=== PATIENT | male | born 1950 | race Caucasian/White ===

== ENCOUNTER 2017-03-16 14:14 | Inpatient (IN) | payer MEDICARE, BC ==
--- NOTE | 2017-03-16 15:40 | EDM.PDOC ---
ED HPI GENERAL MEDICAL PROBLEM - General Chief Complaint: General Stated Complaint: ILLNESS Time Seen by Provider: 03/16/17 15:34 Source of Information: Reports: Patient, Family History Limitations: Reports: No limitations - History of Present Illness INITIAL COMMENTS - FREE TEXT/NARRATIVE: Pt arrived with a cough and fever He has some pain when he takes a deep breath. He is coughing some yellow sputum. Onset: gradual Duration: Day(s):, Other (pt has been coughing for 1 week. ) Location: Reports: chest Associated Symptoms: Reports: cough, diaphoresis, fever/chills, loss of appetite , malaise, shortness of breath esophageal Pain Score (Numeric/FACES): 3 - Related Data Allergies Allergy/AdvReac Type Severity Reaction Status Date / Time No Known Allergies Allergy Verified 03/16/17 14:30 Home Meds: Home Meds Aspirin [Low Dose Aspirin EC] 81 mg PO DAILY 07/20/14 [History] Omeprazole Magnesium [Prilosec Otc] 40 mg PO DAILY PRN 03/14/16 [History] Past Medical History HEENT History: Reports: Cataract, Impaired vision Cardiovascular History: Reports: High cholesterol, Hypertension, Other (see below) Other Cardiovascular History: "[facility]" Gastrointestinal History: Reports: Diverticulosis, GERD Musculoskeletal History: Reports: Other (see below) Other Musculoskeletal History: chronic right shoulder pain from playing softball when younger - Infectious Disease History Infectious Disease History: Reports: Chicken pox - Past Surgical History HEENT Surgical History: Reports: Cataract surgery, Oral surgery, Other (see below) Other HEENT Surgeries/Procedures: both eyes. Some [facility] problems [facility] [place] on [facility]/2017 GI Surgical History: Reports: Cholecystectomy Musculoskeletal Surgical History: Reports: Other (see below) Other Musculoskeletal Surgeries/Procedures:: r ankle and knee surgery Social & Family History - Tobacco Use Smoking Status *Q: Never Smoker Years of Tobacco use: 3 Second Hand Smoke Exposure: No - Caffeine Use Caffeine Use: Reports: None - Alcohol Use Days Per Week of Alcohol Use: 0 - Recreational Drug Use Recreational Drug Use: No ED ROS GENERAL - Review of Systems Review Of Systems: See Below Constitutional: Reports: fever, chills, malaise, diaphoresis HEENT: Reports: No symptoms Respiratory: Reports: Shortness of Breath, Cough, Sputum Cardiovascular: Reports: No symptoms Endocrine: Reports: no symptoms GI/Abdominal: Reports: No symptoms : Reports: no symptoms Musculoskeletal: Reports: no symptoms ED EXAM, GENERAL - Physical Exam Exam: See Below Free Text/Narrative:: Pt arrived with a continuous coughing and raising yellow sputum. He is diaphoretic. He is having alot of acid reflux. Exam Limited By: No limitations General Appearance: alert, moderate distress Ears: normal TMs Nose: normal inspection Throat/Mouth: Normal inspection Head: atraumatic Neck: normal inspection Respiratory/Chest: decreased breath sounds, wheezing Cardiovascular: regular rate, rhythm GI/Abdominal: soft, non tender (Male) Exam: Deferred Rectal (Males) Exam: Deferred Back Exam: normal inspection Extremities: normal inspection Neurological: alert, oriented, normal cognition Psychiatric: normal affect Course - Vital Signs Last Recorded V/S: Last Vital Signs Temp 37.9 C 03/16/17 14:35 Pulse 57 L 03/16/17 14:35 Resp 14 03/16/17 14:35 BP 136/73 03/16/17 14:35 Pulse Ox 95 03/16/17 14:35 - Orders/Labs/Meds Orders: Active Orders 24 hr Category Date Time Status RT Aerosol Therapy [RC] ASDIRECTED Care 03/16/17 15:41 Active Chest 2V [CR] Stat Exams 03/16/17 15:32 Taken COMPREHENSIVE METABOLIC PN,CMP [CHEM] Urgent Lab 03/16/17 15:13 Received PRO B-TYPE NATRIUR PEPT,BNPPRO [CHEM] Urgent Lab 03/16/17 15:13 Received URIC ACID [CHEM] Stat Lab 03/16/17 15:13 Received Sodium Chloride 0.9% [Normal Saline] 1,000 ml Med 03/16/17 15:45 Active IV ASDIRECTED Medication Orders Sodium Chloride (Normal Saline) 1,000 mls @ 999 mls/hr IV ASDIRECTED BJ Last Admin: 03/16/17 15:58 Dose: 999 mls/hr Labs: Laboratory Tests 03/16/17 03/16/17 03/16/17 Range/Units 14:59 15:13 15:46 WBC 19.4 H (4.5-11.0) K/uL RBC 4.25 L (4.30-5.90) M/uL Hgb 14.1 D (12.0-15.0) g/dL Hct 39.9 L (40.0-54.0) % MCV 94 (80-98) fL MCH 33 H (27-31) pg MCHC 35 (32-36) % Plt Count 233 (150-400) K/uL Neut % (Auto) 79 H (36-66) % Lymph % (Auto) 12 L (24-44) % [place] % (Auto) 8 H (2-6) % Eos % (Auto) 1 L (2-4) % Baso % (Auto) 1 (0-1) % C-Reactive Protein 9.10 H (0.0-0.3) mg/dL Urine Color Yellow Urine Appearance Clear Urine pH 7.0 (4.5-8.0) Ur Specific [place] 1.010 (1.008-1.030) Urine Protein Negative (NEGATIVE) mg/dL Urine Glucose (UA) Normal (NEGATIVE) mg/dL Urine Ketones Negative (NEGATIVE) mg/dL Urine Occult Blood Negative (NEGATIVE) Urine Nitrite Negative (NEGAITVE) Urine Bilirubin Negative (NEGATIVE) Urine Urobilinogen 1 (NORMAL) mg/dL Ur Leukocyte Esterase Negative (NEGATIVE) Urine RBC 0-5 (0-5) Urine WBC 0-5 (0-5) Ur Epithelial Cells Rare Amorphous Sediment Not seen Urine Bacteria Rare Urine Mucus Not seen Meds: Medications Generic Name Dose Route Start Last Admin Trade Name Freq PRN Reason Stop Dose Admin Sodium Chloride 1,000 mls @ 999 mls/hr 03/16/17 15:45 03/16/17 15:58 Normal Saline IV 999 mls/hr ASDIRECTED BJ Administration Discontinued Medications Generic Name Dose Route Start Last Admin Trade Name Freq PRN Reason Stop Dose Admin Albuterol 2.5 mg 03/16/17 15:41 03/16/17 15:59 Proventil Neb Soln NEB 03/16/17 15:42 2.5 mg ONETIME ONE Administration - Re-Assessments/Exams Free Text/Narrative Re-Assessment/Exam: 03/16/17 16:26 wbc is markedly elevated crp was greater than 9. His chest xray does not show a clear heart border. Departure - Departure Time of Disposition: 16:28 Disposition: Admitted As Inpatient 65 Condition: fair Clinical Impression: Pneumonia, Dehydration, GERD (gastroesophageal reflux disease) Forms: ED Department Discharge Care Plan Goals: admit to Dr webb. - My Orders Last 24 Hours: My Active Orders 03/16/17 15:13 COMPREHENSIVE METABOLIC PN,CMP [CHEM] Urgent PRO B-TYPE NATRIUR PEPT,BNPPRO [CHEM] Urgent URIC ACID [CHEM] Stat 03/16/17 15:32 Chest 2V [CR] Stat 03/16/17 15:41 RT Aerosol Therapy [RC] ASDIRECTED 03/16/17 15:45 Sodium Chloride 0.9% [Normal Saline] 1,000 ml IV ASDIRECTED - Assessment/Plan Last 24 Hours: My Active Orders 03/16/17 15:13 COMPREHENSIVE METABOLIC PN,CMP [CHEM] Urgent PRO B-TYPE NATRIUR PEPT,BNPPRO [CHEM] Urgent URIC ACID [CHEM] Stat 03/16/17 15:32 Chest 2V [CR] Stat 03/16/17 15:41 RT Aerosol Therapy [RC] ASDIRECTED 03/16/17 15:45 Sodium Chloride 0.9% [Normal Saline] 1,000 ml IV ASDIRECTED
[2017-03-16] MEDS ORDERED: Albuterol 0.083% 2.5 MG/3 ML Neb Soln NEB ONE (15:41)
[2017-03-16] MEDS ORDERED: Sodium Chloride 0.9% 1,000 ML IV SCH (15:45)
--- NOTE | 2017-03-16 17:34 | PCM.HP ---
H&P History of Present Illness - General Date of Service: 03/16/17 Admit Problem/Dx: Admission Diagnosis/Problem Admission Diagnosis/Problem Pneumonia Source of Information: Patient, Family, Provider History Limitations: Reports: No limitations - History of Present Illness Initial Comments - Free Text/Narative: CC: I can't stop coughing HPI: Nikos presents to the emergency room today with nearly 3 weeks of progressive cough with increasing sputum production and severe heartburn. He developed both a significant increase in his heartburn symptoms and a cough at about the same time. His cough has become more frequent to the point that he is coughing fairly steadily over the past 24 hours. He has been unable to sleep because she's coughing so much. Cough is productive for yellow sputum on a semi-regular basis. He has some pleuritic pain on the left side of his chest. He has had subjective fevers and chills for more than a week and last night had an episode of significant diaphoresis while he was sleeping. He has not measured any temperatures at home. He also reports severe esophageal reflux symptoms with mild to moderate achy pain in his throat. Pain radiates throughout most of his neck. When his heartburn symptoms flareup that makes the pain worse. Not eating seems to help the pain lessened and baking soda and water mixed help the pain some. He has had similar discomfort but never this severe. He has not had any trouble with vomiting but has not had an appetite for the past 2 weeks. He's had very little to eat or drink other than a she reports some very mild periumbilical abdominal pain. He has had looser stools than usual. No change in bladder habits. His energy is significantly decreased in his been sleeping more than usual. Workup in the emergency room revealed significant leukocytosis, very elevated C- reactive protein and probable left lower lobe pneumonia. Given his significant coughing, pneumonia and severe reflux symptoms he will be admitted to the hospital for further management. esophageal Pain Score (Numeric/FACES): 3 - Related Data Allergies/Adverse Reactions: Allergies Allergy/AdvReac Type Severity Reaction Status Date / Time No Known Allergies Allergy Verified 03/16/17 14:30 Home Medications: Home Meds Aspirin [Low Dose Aspirin EC] 81 mg PO DAILY 07/20/14 [History] Omeprazole Magnesium [Prilosec Otc] 40 mg PO DAILY 03/14/16 [History] Past Medical History HEENT History: Reports: Cataract, Impaired vision Cardiovascular History: Reports: High cholesterol, Hypertension, Other (see below) Other Cardiovascular History: "[facility]" Gastrointestinal History: Reports: Diverticulosis, GERD Musculoskeletal History: Reports: Other (see below) Other Musculoskeletal History: chronic right shoulder pain from playing softball when younger - Infectious Disease History Infectious Disease History: Reports: Chicken pox - Past Surgical History HEENT Surgical History: Reports: Cataract surgery, Oral surgery, Other (see below) Other HEENT Surgeries/Procedures: both eyes. Some ear problems - [facility], has [facility] app[facility] in [place] on 10/23/2017 GI Surgical History: Reports: Cholecystectomy Musculoskeletal Surgical History: Reports: Other (see below) Other Musculoskeletal Surgeries/Procedures:: r ankle and knee surgery Social & Family History - Family History GI: Reports: Cirrhosis (4 brothers), GERD (mother) - Tobacco Use Smoking Status *Q: Never Smoker Years of Tobacco use: 3 Second Hand Smoke Exposure: No - Caffeine Use Caffeine Use: Reports: None - Alcohol Use Days Per Week of Alcohol Use: 0 - Recreational Drug Use Recreational Drug Use: No H&P Review of Systems - Review of Systems: Review Of Systems: See Below Free Text/Narrative: A complete 12 point review of systems was obtained. Pertinent positives and negatives are noted in the history of present illness. All other systems were reviewed and were negative except as noted. Exam - Exam Exam: See Below - Vital Signs Vital Signs: Last Vital Signs Temp 37.9 C 03/16/17 14:35 Pulse 69 03/16/17 16:20 Resp 18 03/16/17 16:20 BP 137/62 03/16/17 16:20 Pulse Ox 92 L 03/16/17 16:20 Weight: 87.5 kg - Exam Quality Assessment: No: supplemental oxygen, urinary catheter General: alert, oriented, cooperative. No: mild distress HEENT: Conjunctiva clear, Mucosa moist & pink. No: Scleral icterus Neck: supple, trachea midline. No: lymphadenopathy, thyromegaly Lungs: Normal respiratory effort, Rales (left lung base). No: Wheezing Cardiovascular: regular rate, regular rhythm. No: systolic murmur Abdomen: normal bowel sounds, soft, tenderness (mild periumbilical and epigastric ). No: distention, mass Back Exam: normal inspection, full range of motion Extremities: normal inspection, normal pulses. No: cyanosis, edema Peripheral Pulses: 1+: dorsalis pedis (L), dorsalis pedis (R) Skin: warm, dry, intact. No: rash Neuro Extensive - Mental Status: alert, oriented x3, nl response to commands Neuro Extensive - Motor, Sensory, Reflexes: CN II-XII intact. No: dysarthria, abnormal motor, tremor Psychiatric: alert, normal affect - Patient Data Lab Results last 24 hrs: Laboratory Results - last 24 hr 03/16/17 03/16/17 03/16/17 Range/Units 14:59 15:13 15:13 WBC 19.4 H (4.5-11.0) K/uL RBC 4.25 L (4.30-5.90) M/uL Hgb 14.1 D (12.0-15.0) g/dL Hct 39.9 L (40.0-54.0) % MCV 94 (80-98) fL MCH 33 H (27-31) pg MCHC 35 (32-36) % Plt Count 233 (150-400) K/uL Neut % (Auto) 79 H (36-66) % Lymph % (Auto) 12 L (24-44) % [place] % (Auto) 8 H (2-6) % Eos % (Auto) 1 L (2-4) % Baso % (Auto) 1 (0-1) % Sodium 137 L (140-148) mmol/L Potassium 3.6 (3.6-5.2) mmol/L Chloride 103 (100-108) mmol/L Carbon Dioxide 27 (21-32) mmol/L Anion Gap 10.6 (5.0-14.0) mmol/L BUN 12 (7-18) mg/dL Creatinine 1.4 H (0.8-1.3) mg/dL Est Cr Clr Drug Dosing 52.14 mL/min Estimated GFR (MDRD) 50 L (>60) Glucose 99 (74-106) mg/dL Uric Acid 6.3 (3.5-7.2) mg/dL Calcium 7.8 L (8.5-10.1) mg/dL Total Bilirubin 1.0 (0.2-1.0) mg/dL AST 36 (15-37) U/L ALT 63 (12-78) U/L Alkaline Phosphatase 101 (46-116) U/L C-Reactive Protein 9.10 H (0.0-0.3) mg/dL Imc-B-Wafqhslwchl Pept 1056 H (5-125) pg/mL Total Protein 6.2 L (6.4-8.2) g/dL Albumin 2.6 L (3.4-5.0) g/dL Globulin 3.6 H (2.3-3.5) g/dL Albumin/Globulin Ratio 0.7 L (1.2-2.2) Urine Color Urine Appearance Urine pH (4.5-8.0) Ur Specific [place] (1.008-1.030) Urine Protein (NEGATIVE) mg/dL Urine Glucose (UA) (NEGATIVE) mg/dL Urine Ketones (NEGATIVE) mg/dL Urine Occult Blood (NEGATIVE) Urine Nitrite (NEGAITVE) Urine Bilirubin (NEGATIVE) Urine Urobilinogen (NORMAL) mg/dL Ur Leukocyte Esterase (NEGATIVE) Urine RBC (0-5) Urine WBC (0-5) Ur Epithelial Cells Amorphous Sediment Urine Bacteria Urine Mucus 03/16/17 Range/Units 15:46 WBC (4.5-11.0) K/uL RBC (4.30-5.90) M/uL Hgb (12.0-15.0) g/dL Hct (40.0-54.0) % MCV (80-98) fL MCH (27-31) pg MCHC (32-36) % Plt Count (150-400) K/uL Neut % (Auto) (36-66) % Lymph % (Auto) (24-44) % [place] % (Auto) (2-6) % Eos % (Auto) (2-4) % Baso % (Auto) (0-1) % Sodium (140-148) mmol/L Potassium (3.6-5.2) mmol/L Chloride (100-108) mmol/L Carbon Dioxide (21-32) mmol/L Anion Gap (5.0-14.0) mmol/L BUN (7-18) mg/dL Creatinine (0.8-1.3) mg/dL Est Cr Clr Drug Dosing mL/min Estimated GFR (MDRD) (>60) Glucose (74-106) mg/dL Uric Acid (3.5-7.2) mg/dL Calcium (8.5-10.1) mg/dL Total Bilirubin (0.2-1.0) mg/dL AST (15-37) U/L ALT (12-78) U/L Alkaline Phosphatase (46-116) U/L C-Reactive Protein (0.0-0.3) mg/dL Red-Y-Ijcfmjjjaez Pept (5-125) pg/mL Total Protein (6.4-8.2) g/dL Albumin (3.4-5.0) g/dL Globulin (2.3-3.5) g/dL Albumin/Globulin Ratio (1.2-2.2) Urine Color Yellow Urine Appearance Clear Urine pH 7.0 (4.5-8.0) Ur Specific [place] 1.010 (1.008-1.030) Urine Protein Negative (NEGATIVE) mg/dL Urine Glucose (UA) Normal (NEGATIVE) mg/dL Urine Ketones Negative (NEGATIVE) mg/dL Urine Occult Blood Negative (NEGATIVE) Urine Nitrite Negative (NEGAITVE) Urine Bilirubin Negative (NEGATIVE) Urine Urobilinogen 1 (NORMAL) mg/dL Ur Leukocyte Esterase Negative (NEGATIVE) Urine RBC 0-5 (0-5) Urine WBC 0-5 (0-5) Ur Epithelial Cells Rare Amorphous Sediment Not seen Urine Bacteria Rare Urine Mucus Not seen Result Diagrams: 03/16/17 14:59 03/16/17 15:13 Imaging Impressions last 24 hrs: CXR - images personally reviewed and compared to previous CXR's - there is a possible subtle left lung infiltrate near the left heart border. No mass or chf. no bony abnormalities. EKG INTERPRETATION EKG Date: 03/16/17 Rhythm: NSR Rate (beats/min): 68 [place]: LAD-left axis deviation (LAFB) P-wave: present QRS: normal ST-T: normal QT: normal EKG Interpretation Comments: Poor R wave progression *Q Meaningful Use (ADM) - VTE *Q VTE Criteria *Q: - VTE Risk Assess *Q Each Risk Factor Represents 1 Point: Minor Surgery Planned Total Score 1 Point Risk Factors: 1 Each Risk Factor Represents 2 Points: Age 60 - 74 Years Total Score 2 Point Risk Factors: 2 - Stroke *Q Stroke Criteria *Q: - AMI *Q AMI Criteria *Q: - Problem List (1) Pneumonia SNOMED Code(s): 257936344 ICD Code: J18.9 - PNEUMONIA, UNSPECIFIED ORGANISM Status: Acute Current Visit: Yes Qualifiers: Pneumonia type: due to unspecified organism Laterality: left Lung location: lower lobe of lung Qualified Code(s): J18.1 - Lobar pneumonia, unspecified organism (2) GERD (gastroesophageal reflux disease) SNOMED Code(s): 529186833 ICD Code: K21.9 - GASTRO-ESOPHAGEAL REFLUX DISEASE WITHOUT ESOPHAGITIS Status: Acute Current Visit: Yes Qualifiers: Esophagitis presence: esophagitis presence not specified Qualified Code(s) : K21.9 - Gastro-esophageal reflux disease without esophagitis Problem List Initiated/Reviewed/Updated: Yes Orders Last 24hrs: Active Orders 24 hr Category Date Time Status Patient Status Manage Transfer [TRANSFER] Routine ADT 03/16/17 17:23 Ordered EKG Documentation Completion [RC] ASDIRECTED Care 03/16/17 16:29 Active RT Aerosol Therapy [RC] ASDIRECTED Care 03/16/17 15:41 Active Chest 2V [CR] Stat Exams 03/16/17 15:32 Taken CULTURE RESPIRATORY + SMEAR [RM] Routine Lab 03/16/17 17:23 Uncollected Benzonatate [Tessalon Perles] Med 03/16/17 17:22 Active 100 mg PO TID PRN Levofloxacin/Dextrose 5%-Water [Levaquin in D5W 750 MG/ Med 03/16/17 17:30 Active 150 ML] 750 mg Premix Bag 1 bag IV Q24H Sodium Chloride 0.9% [Normal Saline] 1,000 ml Med 03/16/17 15:45 Active IV ASDIRECTED Sodium Chloride 0.9% [Normal Saline] 1,000 ml Med 03/16/17 17:30 Active IV ASDIRECTED Resuscitation Status Routine Resus Stat 03/16/17 17:24 Ordered EKG 12 Lead [EK] Routine Ther 03/16/17 16:29 Ordered Medication Orders Benzonatate (Tessalon Perles) 100 mg PO TID PRN PRN Reason: Cough Sodium Chloride (Normal Saline) 1,000 mls @ 999 mls/hr IV ASDIRECTED BJ Last Admin: 03/16/17 15:58 Dose: 999 mls/hr Levofloxacin/Dextrose 750 mg/ (Premix) 150 mls @ 100 mls/hr IV Q24H BJ Sodium Chloride (Normal Saline) 1,000 mls @ 125 mls/hr IV ASDIRECTED BJ Assessment/Plan Comment:: Assessment and plan - Left lower lobe pneumonia - chest x-ray did not all that impressive but significant crackles on the side with examination and significant cough as well. He has an elevated white count and C-reactive protein. No significant smoking history. He is not currently hypoxic but has very impressive coughing symptoms. No evidence for sepsis. -Levofloxacin -Sputum culture -Oxygen if needed -Nebulizers as needed -Cough suppressant -Blood cultures if he spikes a fever Severe GERD - history of reflux but symptoms are usually able to be controlled with omeprazole. Severe symptoms for the past 2-3 weeks. Unable to keep much of anything because of his symptoms. Unclear if the pneumonia is worsening his baseline symptoms or if the GERD led to aspiration. -Proton pump inhibitor -Sucralfate -Maalox as needed -EGD in the morning with Dr. Aragon Maintenance issues - - DVT prophylaxis - SCDs and ambulation - GI prophylaxis - PPI - Nutrition - regular diet today, n.p.o. after midnight - Martinez catheter - not indicated CODE STATUS - full code Admission justification - This patient will be admitted for inpatient services and is medically appropriate meeting medical necessity for inpatient admission as outlined in my documentation. I reasonably expect the patient will require inpatient services that span a period time of 2 midnights or more. I reasonably expect this patient to be discharged or transferred within 96 hours [facility]. Disposition - anticipate discharge home after the hospital stay Primary care physician - Dr. Dre Ybarra M.D.
[2017-03-16] MEDS: Sodium Chloride 0.9% 1,000 ML IV SCH (17:40)
[2017-03-16] MEDS: Levofloxacin/Dextrose 5%-Water 750 MG in Premix Bag 1 BAG IV SCH (17:41)
[2017-03-16] MEDS: Benzonatate 100 MG Cap PO PRN ×2 (17:47→23:54)
[2017-03-16] MEDS ORDERED: Ondansetron 4 MG Tab.DIS PO PRN (18:39)
[2017-03-16] MEDS ORDERED: Ondansetron 4 MG/2 ML SDV IV PRN (18:39)
[2017-03-16] MEDS ORDERED: Pantoprazole 40 MG Vial IV ONE (18:39)
[2017-03-16] MEDS ORDERED: Aluminum Hydroxide/Magnesium Hydroxide/Simethicone Susp 30 ML Cup PO PRN (18:39)
[2017-03-16] MEDS: Acetaminophen 325 MG Tab PO PRN (19:45)
[2017-03-16] MEDS: Sucralfate Suspension 1 GM/10 ML Cup PO SCH (19:45)
[2017-03-16] MEDS: Codeine/guaiFENesin 100mg-10 MG/5 ML Syrup 10 ML Cup PO PRN ×2 (19:45→23:55)
[2017-03-17] MEDS: Sodium Chloride 0.9% 1,000 ML IV SCH ×3 (02:48→15:29)
[2017-03-17] MEDS: Codeine/guaiFENesin 100mg-10 MG/5 ML Syrup 10 ML Cup PO PRN ×3 (04:06→19:29)
[2017-03-17] MEDS ORDERED: Propofol 200 MG/20 ML SDV ONE (08:14)
[2017-03-17] MEDS ORDERED: fentaNYL 100 MCG/2 ML SDV ONE (08:14)
[2017-03-17] MEDS ORDERED: Midazolam 1 MG/ML 2 ML SDV ONE (08:14)
[2017-03-17] MEDS ORDERED: Acetaminophen 650 MG Supp RECTAL ONE (09:24)
--- NOTE | 2017-03-17 10:24 | PCM.PN ---
- General Info Date of Service: 03/17/17 Functional Status: Reports: pain controlled, tolerating diet, ambulating - Review of Systems General: Reports: Fever Pulmonary: Reports: shortness of breath, cough Gastrointestinal: Reports: Other (reflux) Systems Review Comment:: some difficulty with cough overnight that interfered with his sleep but otherwise no acute events. Still having moderate reflux symptoms this morning. He also had a fever this morning but no associated symptoms. Blood pressures and heart rate have been stable. He has not been hypoxic. Tolerating antibiotics well. No complaints of abdominal pain. - Patient Data Vitals - most recent: Last Vital Signs Temp 38.6 C H 03/17/17 09:30 Pulse 67 03/17/17 07:00 Resp 18 03/17/17 07:00 BP 151/75 H 03/17/17 07:00 Pulse Ox 95 03/17/17 07:00 Weight - most recent: 87.5 kg I&O - last 24 hours: Intake & Output 03/16/17 03/17/17 03/17/17 22:59 06:59 14:59 Intake Total 120 2332 Output Total 1300 800 Balance 120 1032 -800 Lab Results last 24 hrs: Laboratory Results - last 24 hr 03/17/17 03/17/17 Range/Units 05:55 05:55 WBC 14.6 H (4.5-11.0) K/uL RBC 4.37 (4.30-5.90) M/uL Hgb 14.4 (12.0-15.0) g/dL Hct 41.5 (40.0-54.0) % MCV 95 (80-98) fL MCH 33 H (27-31) pg MCHC 35 (32-36) % Plt Count 235 (150-400) K/uL Sodium 141 (140-148) mmol/L Potassium 4.8 (3.6-5.2) mmol/L Chloride 107 (100-108) mmol/L Carbon Dioxide 29 (21-32) mmol/L Anion Gap 4.7 L (5.0-14.0) mmol/L BUN 10 (7-18) mg/dL Creatinine 1.3 (0.8-1.3) mg/dL Est Cr Clr Drug Dosing 56.15 mL/min Estimated GFR (MDRD) 55 L (>60) Glucose 101 (74-106) mg/dL Calcium 8.0 L (8.5-10.1) mg/dL Med Orders - Current: Current Medications Acetaminophen (Tylenol) 650 mg PO Q4H PRN PRN Reason: Pain (Mild 1-3)/fever Last Admin: 03/16/17 19:45 Dose: 650 mg Al Hydroxide/Mg Hydroxide (Mag-Al Plus) 30 ml PO Q4H PRN PRN Reason: Heartburn Albuterol (Proventil Neb Soln) 2.5 mg NEB Q4H PRN PRN Reason: Shortness Of Breath/wheezing Benzonatate (Tessalon Perles) 100 mg PO TID PRN PRN Reason: Cough Last Admin: 03/16/17 23:54 Dose: 100 mg Guaifenesin/Codeine Phosphate (Robitussin Ac) 10 ml PO Q4H PRN PRN Reason: Cough Last Admin: 03/17/17 08:04 Dose: 10 ml Levofloxacin/Dextrose 750 mg/ (Premix) 150 mls @ 100 mls/hr IV Q24H [facility] Last Admin: 03/16/17 17:41 Dose: 100 mls/hr Sodium Chloride (Normal Saline) 1,000 mls @ 125 mls/hr IV ASDIRECTED [facility] Last Admin: 03/17/17 02:48 Dose: 125 mls/hr Ondansetron HCl (Zofran Odt) 4 mg PO Q6H PRN PRN Reason: Nausea able to take PO Ondansetron HCl (Zofran) 4 mg IV Q6H PRN PRN Reason: Nausea/Vomiting Pantoprazole Sodium (Protonix) 40 mg PO BIDAC [facility] Sucralfate (Carafate) 1 gm PO QIDACANDBED [facility] Last Admin: 03/16/17 19:45 Dose: 1 gm Discontinued Medications Acetaminophen (Tylenol) 650 mg RECTAL NOW ONE Stop: 03/17/17 09:25 Last Admin: 03/17/17 09:36 Dose: 650 mg Albuterol (Proventil Neb Soln) 2.5 mg NEB ONETIME ONE Stop: 03/16/17 15:42 Last Admin: 03/16/17 15:59 Dose: 2.5 mg Fentanyl (Sublimaze) Confirm Administered Dose 100 mcg .ROUTE .STK-MED ONE Stop: 03/17/17 08:15 Sodium Chloride (Normal Saline) 1,000 mls @ 999 mls/hr IV ASDIRECTED [facility] Last Admin: 03/16/17 15:58 Dose: 999 mls/hr Midazolam HCl (Versed 1 Mg/Ml) Confirm Administered Dose 2 mg .ROUTE .STK-MED ONE Stop: 03/17/17 08:15 Pantoprazole Sodium (Protonix Iv) 40 mg IV ONETIME ONE Stop: 03/16/17 18:40 Last Admin: 03/16/17 19:45 Dose: 40 mg Propofol (Diprivan 20 Ml) Confirm Administered Dose 200 mg .ROUTE .STK-MED ONE Stop: 03/17/17 08:15 - Exam Quality Assessment: No: supplemental oxygen General: alert, oriented, cooperative, no acute distress Neck: supple Lungs: Clear to auscultation, Normal respiratory effort, Decreased breath sounds (mild left lung base). No: Wheezing Cardiovascular: Regular Rate, Regular Rhythm, No Murmurs Abdomen: soft, no distension Extremities: no edema, no cyanosis Skin: warm, dry Psy/Mental Status: alert, normal affect - Problem List & Annotations (1) Pneumonia SNOMED Code(s): 591249431 Code(s): J18.9 - PNEUMONIA, UNSPECIFIED ORGANISM Status: Acute Current Visit: Yes Qualifiers: Pneumonia type: due to unspecified organism Laterality: left Lung location: lower lobe of lung Qualified Code(s): J18.1 - Lobar pneumonia, unspecified organism (2) GERD (gastroesophageal reflux disease) SNOMED Code(s): 267016554 Code(s): K21.9 - GASTRO-ESOPHAGEAL REFLUX DISEASE WITHOUT ESOPHAGITIS Status: Acute Current Visit: Yes Qualifiers: Esophagitis presence: esophagitis presence not specified Qualified Code(s) : K21.9 - Gastro-esophageal reflux disease without esophagitis - Problem List Review Problem List Initiated/Reviewed/Updated: Yes - My Orders Last 24 Hours: My Active Orders 03/16/17 17:24 Resuscitation Status Routine 03/16/17 18:39 Patient Status [ADT] Routine Intake and Output [RC] QSHIFT Notify Provider Consults [RC] ASDIRECTED Notify Provider Vital Signs [RC] ASDIRECTED Oxygen Therapy [RC] PRN RT Aerosol Therapy [RC] ASDIRECTED Up ad Mackenzie [RC] ASDIRECTED Vital Signs [RC] Q4H Consult to Physician [CONS] Routine Acetaminophen [Tylenol] 650 mg PO Q4H PRN Albuterol [Proventil Neb Soln] 2.5 mg NEB Q4H PRN Alum Hydrox/Mag Hydrox/Simeth [Mag-Al Plus] 30 ml PO Q4H PRN Codeine/guaiFENesin [Robitussin AC] 10 ml PO Q4H PRN Ondansetron [Zofran ODT] 4 mg PO Q6H PRN Ondansetron [Zofran] 4 mg IV Q6H PRN Sequential Compression Device [OM.PC] Per Unit Routine 03/16/17 20:00 Sucralfate [Carafate] 1 gm PO QIDACANDBED 03/16/17 Dinner Regular Diet [DIET] 03/17/17 07:30 Pantoprazole [ProTONIX] 40 mg PO BIDAC 03/17/17 09:25 Blood Culture x2 Reflex Set [OM.PC] Urgent 03/17/17 09:30 CULTURE BLOOD [BC] Urgent 03/17/17 09:40 CULTURE BLOOD [BC] Urgent 03/18/17 05:00 BASIC METABOLIC PANEL,BMP [CHEM] Timed CBC W/O DIFF,HEMOGRAM [HEME] Timed (1) - Plan Plan:: Assessment and plan - Left lower lobe pneumonia - chest x-ray did not all that impressive but significant crackles on the side with examination and significant cough as well. fever this morning but no hypoxia. Tolerating antibiotics. Exam seems to be improving. -Levofloxacin -Sputum culture -Oxygen if needed -Nebulizers as needed -Cough suppressant -Blood cultures if he spikes a fever Severe GERD - history of reflux but symptoms are usually able to be controlled with omeprazole. EGD revealed large erosion. Symptoms have improved since the procedure. -twice daily Proton pump inhibitor (3 months) -Sucralfate x2-4 weeks -Maalox as needed Maintenance issues - - DVT prophylaxis - SCDs and ambulation - GI prophylaxis - PPI - Nutrition - restart diet after the EGD - Martinez catheter - not indicated Disposition - anticipate discharge home after the hospital stay, possibly tomorrow if he is afebrile and symptoms continue to improve Barrett Ybarra M.D.
[2017-03-17] MEDS: Sucralfate Suspension 1 GM/10 ML Cup PO SCH ×4 (13:36→20:26)
[2017-03-17] MEDS: Pantoprazole 40 MG Tab.CR PO SCH ×2 (13:39→17:19)
[2017-03-17] MEDS: Benzonatate 100 MG Cap PO PRN ×2 (14:11→21:47)
[2017-03-17] MEDS: Acetaminophen 325 MG Tab PO PRN ×2 (15:28→19:23)
[2017-03-17] MEDS: Levofloxacin/Dextrose 5%-Water 750 MG in Premix Bag 1 BAG IV SCH (17:19)
--- NOTE | 2017-03-17 20:40 | PCM.SN ---
- Free Text/Narrative Note: 2 [facility]; concerns of fever requests medication. patient denies any pain or shortness of breath a; pnuemonia with fever p; order Tylenol 1000mg po every 4hr prn fever or pain, Motrin 800mg po every 8 hr prn pain or fever continue present plan of care
[2017-03-17] MEDS: Ibuprofen 800 MG Tab PO PRN (21:46)
[2017-03-17] MEDS: Albuterol 0.083% 2.5 MG/3 ML Neb Soln NEB PRN (21:47)
[2017-03-18] MEDS: Sodium Chloride 0.9% 1,000 ML IV SCH ×2 (00:53→08:51)
[2017-03-18] MEDS: Sucralfate Suspension 1 GM/10 ML Cup PO SCH ×4 (07:26→19:44)
[2017-03-18] MEDS: Pantoprazole 40 MG Tab.CR PO SCH ×2 (07:46→16:33)
--- NOTE | 2017-03-18 10:07 | CR ---
Chest 2V HISTORY: Cough. COMPARISON: 03/12/2016. FINDINGS: Cardiac size and pulmonary vessels normal. Very faint density left lung base either repres enting atelectasis or faint infiltrate. No effusions. Cardiac size stable.
[2017-03-18] MEDS: Acetaminophen 500 MG Tab PO PRN (10:50)
[2017-03-18] MEDS: Ibuprofen 800 MG Tab PO PRN ×2 (11:22→22:26)
[2017-03-18] MEDS: Benzonatate 100 MG Cap PO PRN ×2 (11:27→20:18)
--- NOTE | 2017-03-18 13:35 | OR ---
DATE OF PROCEDURE: 03/17/2017 PREOPERATIVE DIAGNOSIS: Gastroesophageal reflux disease. POSTOPERATIVE DIAGNOSIS: Gastroesophageal reflux disease. PROCEDURE: Esophagogastroduodenoscopy with biopsy of gastroesophageal junction. ANESTHESIA: IV anesthesia with monitored anesthesia care. INDICATION: This 67-year-old white male has had years, he says, of reflux. He has been taking medication. The head of the bed is elevated; however, he has had very severe symptoms of reflux for the past few weeks. He was admitted to the hospital. He has what is described as a minor pneumonia. Request was made for upper endoscopy. I counseled him for upper endoscopy with possible biopsy, and he gave his informed consent to proceed. DESCRIPTION OF PROCEDURE: The patient was placed in the left lateral decubitus position. IV anesthesia was administered by the Anesthesia Service. Time-out was held. The flexible video Olympus upper endoscope was passed through his mouth, down the esophagus, and into the stomach. The scope was easily passed through the pylorus into the duodenum, reaching its third portion. The scope was then slowly withdrawn, examining the mucosa throughout. The duodenal mucosa appeared unremarkable. The scope was brought up through the pylorus. The antrum appeared unremarkable. The scope was retroflexed. The proximal stomach appeared unremarkable. The scope was straightened. We did notice some bile in the stomach. We aspirated this free. The scope was then brought up to the GE junction. This was markedly abnormal with fingers of gastric mucosa coursing proximally up into the esophagus. We obtained multiple, totalling 6 biopsies of the gastroesophageal junction. The scope was then brought proximal through the remainder of the esophagus, which otherwise appeared unremarkable, and it was removed. He tolerated the procedure well. Ramu Aragon MD /[id number]
--- NOTE | 2017-03-18 13:54 | PCM.PN ---
- General Info Date of Service: 03/18/17 Functional Status: Reports: ambulating, urinating - Review of Systems General: Reports: Fever, Weakness, Chills Pulmonary: Reports: shortness of breath, cough. Denies: pleuritic chest pain, sputum, hemoptysis, wheezing Cardiovascular: Reports: Dyspnea on Exertion. Denies: Chest Pain, Palpitations , Orthopnea, PND, Edema, Lightheadedness Gastrointestinal: Reports: No symptoms Systems Review Comment:: This patient is a 67-year-old gentleman admitted with pneumonia and severe esophageal reflux. Continues to experience temperature elevations, white blood cell count is improved. Energy level is better but he continues to have fairly poor appetite, intake of liquids has been adequate. - Patient Data Vitals - most recent: Last Vital Signs Temp 101.0 F H 03/18/17 11:23 Pulse 80 03/18/17 11:23 Resp 16 03/18/17 11:23 BP 176/84 H 03/18/17 11:23 Pulse Ox 95 03/18/17 11:23 Weight - most recent: 192 lb 14.472 oz I&O - last 24 hours: Intake & Output 03/17/17 03/18/17 03/18/17 22:59 06:59 14:59 Intake Total 1999 1835 240 Output Total 600 600 300 Balance 1400 1235 -60 Lab Results last 24 hrs: Laboratory Results - last 24 hr 03/18/17 03/18/17 Range/Units 05:51 05:51 WBC 12.8 H (4.5-11.0) K/uL RBC 4.47 (4.30-5.90) M/uL Hgb 14.7 (12.0-15.0) g/dL Hct 42.2 (40.0-54.0) % MCV 94 (80-98) fL MCH 33 H (27-31) pg MCHC 35 (32-36) % Plt Count 254 (150-400) K/uL Sodium 139 L (140-148) mmol/L Potassium 3.9 (3.6-5.2) mmol/L Chloride 105 (100-108) mmol/L Carbon Dioxide 28 (21-32) mmol/L Anion Gap 9.9 (5.0-14.0) mmol/L BUN 8 (7-18) mg/dL Creatinine 1.1 (0.8-1.3) mg/dL Est Cr Clr Drug Dosing 66.36 mL/min Estimated GFR (MDRD) > 60 (>60) Glucose 95 (74-106) mg/dL Calcium 7.9 L (8.5-10.1) mg/dL Maksim Results last 24 hrs: Microbiology 03/17/17 09:40 Aerobic Blood Culture - Preliminary Blood - Arm, Left NO GROWTH AFTER 1 DAY Anaerobic Blood Culture - Preliminary NO GROWTH AFTER 1 DAY 03/17/17 09:30 Aerobic Blood Culture - Preliminary Blood - Arm, Left NO GROWTH AFTER 1 DAY Anaerobic Blood Culture - Preliminary NO GROWTH AFTER 1 DAY Med Orders - Current: Current Medications Acetaminophen (Tylenol Extra Strength) 1,000 mg PO Q6H PRN PRN Reason: Fever Last Admin: 03/18/17 10:50 Dose: 1,000 mg Acetylcysteine (Mucomyst 20%) 200 mg NEB TIDRT [facility] Al Hydroxide/Mg Hydroxide (Mag-Al Plus) 30 ml PO Q4H PRN PRN Reason: Heartburn Albuterol (Proventil Neb Soln) 2.5 mg NEB Q4H PRN PRN Reason: Shortness Of Breath/wheezing Last Admin: 03/17/17 21:47 Dose: 2.5 mg Benzonatate (Tessalon Perles) 200 mg PO TID PRN PRN Reason: Cough Last Admin: 03/18/17 11:27 Dose: 200 mg Guaifenesin/Codeine Phosphate (Robitussin Ac) 10 ml PO Q4H PRN PRN Reason: Cough Last Admin: 03/17/17 19:29 Dose: 10 ml Levofloxacin/Dextrose 750 mg/ (Premix) 150 mls @ 100 mls/hr IV Q24H [facility] Last Admin: 03/17/17 17:19 Dose: 100 mls/hr Clindamycin Phosphate 600 mg/ (Sodium Chloride) 54 mls @ 100 mls/hr IV Q6H [facility] Ibuprofen (Motrin) 800 mg PO Q8H PRN PRN Reason: Fever Last Admin: 03/18/17 11:22 Dose: 800 mg Ondansetron HCl (Zofran Odt) 4 mg PO Q6H PRN PRN Reason: Nausea able to take PO Ondansetron HCl (Zofran) 4 mg IV Q6H PRN PRN Reason: Nausea/Vomiting Pantoprazole Sodium (Protonix) 40 mg PO BIDAC [facility] Last Admin: 03/18/17 07:46 Dose: 40 mg Sucralfate (Carafate) 1 gm PO QIDACANDBED [facility] Last Admin: 03/18/17 11:22 Dose: 1 gm Discontinued Medications Acetaminophen (Tylenol) 650 mg PO Q4H PRN PRN Reason: Pain (Mild 1-3)/fever Last Admin: 03/17/17 19:23 Dose: 650 mg Acetaminophen (Tylenol) 650 mg RECTAL NOW ONE Stop: 03/17/17 09:25 Last Admin: 03/17/17 09:36 Dose: 650 mg Albuterol (Proventil Neb Soln) 2.5 mg NEB ONETIME ONE Stop: 03/16/17 15:42 Last Admin: 03/16/17 15:59 Dose: 2.5 mg Benzonatate (Tessalon Perles) 100 mg PO TID PRN PRN Reason: Cough Last Admin: 03/16/17 23:54 Dose: 100 mg Fentanyl (Sublimaze) Confirm Administered Dose 100 mcg .ROUTE .STK-MED ONE Stop: 03/17/17 08:15 Sodium Chloride (Normal Saline) 1,000 mls @ 999 mls/hr IV ASDIRECTED [facility] Last Admin: 03/16/17 15:58 Dose: 999 mls/hr Sodium Chloride (Normal Saline) 1,000 mls @ 125 mls/hr IV ASDIRECTED [facility] Last Admin: 03/18/17 08:51 Dose: 125 mls/hr Midazolam HCl (Versed 1 Mg/Ml) Confirm Administered Dose 2 mg .ROUTE .STK-MED ONE Stop: 03/17/17 08:15 Pantoprazole Sodium (Protonix Iv) 40 mg IV ONETIME ONE Stop: 03/16/17 18:40 Last Admin: 03/16/17 19:45 Dose: 40 mg Propofol (Diprivan 20 Ml) Confirm Administered Dose 200 mg .ROUTE .STK-MED ONE Stop: 03/17/17 08:15 - Exam Quality Assessment: DVT prophylaxis General: alert, oriented, cooperative, mild distress Lungs: Clear to auscultation, Normal respiratory effort, Rales, Rhonchi Cardiovascular: Regular Rate, Regular Rhythm, No Murmurs Abdomen: bowel sounds present, soft, no tenderness, no distension Extremities: no edema Skin: warm, dry, intact - Problem List Review Problem List Initiated/Reviewed/Updated: Yes - My Orders Last 24 Hours: My Active Orders 03/18/17 13:48 Convert IV to Saline Lock [OM.PC] Routine 03/18/17 13:50 RT Aerosol Therapy [RC] ASDIRECTED RT Acapella [RESPCARE] Routine 03/18/17 14:00 Clindamycin Phosphate [Cleocin] 600 mg Sodium Chloride 0.9% [Normal Saline] 50 ml IV Q6H 03/18/17 21:00 Acetylcysteine [Mucomyst 20%] 200 mg NEB TIDRT 03/19/17 05:00 BASIC METABOLIC PANEL,BMP [CHEM] Timed CBC WITH AUTO DIFF [HEME] Timed - Plan Plan:: Assessment and plan - Left lower lobe pneumonia - seems to be slowly improving, white count is better , he has had recurrent temperature elevations. Fever curve does seem to be slowly decreasing. Question of possible aspiration given his significant reflux. -Add clindamycin to current antibiotic therapy -Levofloxacin -Sputum culture -Oxygen if needed -Nebulizers as needed -Cough suppressant -Blood cultures if he spikes a fever Severe GERD - history of reflux but symptoms are usually able to be controlled with omeprazole. EGD revealed large erosion. Symptoms have improved since the procedure. -twice daily Proton pump inhibitor (3 months) -Sucralfate x2-4 weeks -Maalox as needed Maintenance issues - - DVT prophylaxis - SCDs and ambulation - GI prophylaxis - PPI - Nutrition - restart diet after the EGD - Martinez catheter - not indicated Disposition - anticipate discharge home after the hospital stay, possibly tomorrow if he is afebrile and symptoms continue to improve
[2017-03-18] MEDS: Albuterol 0.083% 2.5 MG/3 ML Neb Soln NEB PRN (14:41)
[2017-03-18] MEDS ORDERED: Acetylcysteine 20% 200 MG/ML 4 ML Nebulizer Soln SDV NEB ONE (15:00)
[2017-03-18] MEDS: Levofloxacin/Dextrose 5%-Water 750 MG in Premix Bag 1 BAG IV SCH (17:34)
[2017-03-18] MEDS: Acetylcysteine 20% 200 MG/ML 4 ML Nebulizer Soln SDV NEB SCH (20:21)
[2017-03-19] MEDS: Pantoprazole 40 MG Tab.CR PO SCH ×2 (07:24→16:41)
[2017-03-19] MEDS: Sucralfate Suspension 1 GM/10 ML Cup PO SCH ×4 (07:24→20:12)
[2017-03-19] MEDS: Acetylcysteine 20% 200 MG/ML 4 ML Nebulizer Soln SDV NEB SCH ×3 (07:27→20:26)
[2017-03-19] MEDS: Albuterol 0.083% 2.5 MG/3 ML Neb Soln NEB PRN ×3 (07:27→20:26)
[2017-03-19] MEDS: Acetaminophen 500 MG Tab PO PRN (08:21)
[2017-03-19] MEDS ORDERED: Zolpidem 5 MG Tab PO PRN (12:01)
--- NOTE | 2017-03-19 12:08 | PCM.PN ---
- General Info Date of Service: 03/19/17 Functional Status: Reports: ambulating, urinating - Review of Systems General: Reports: Fever, Weakness, Fatigue Pulmonary: Reports: shortness of breath, cough. Denies: pleuritic chest pain, sputum, hemoptysis, wheezing Cardiovascular: Reports: Dyspnea on Exertion. Denies: Chest Pain, Palpitations , Orthopnea, PND, Edema Gastrointestinal: Reports: No symptoms Systems Review Comment:: This patient has been stable over the past 24 hours, he has had a mild recurrent temperature elevation in white blood cell count remains modestly elevated. Shortness of breath and cough seems to be improved from admission and he has been up and ambulating in the halls. He did not sleep well during the night and as a result of that feels fairly fatigued today. - Patient Data Vitals - most recent: Last Vital Signs Temp 97.5 F 03/19/17 11:09 Pulse 59 L 03/19/17 11:09 Resp 18 03/19/17 11:09 BP 138/72 03/19/17 11:09 Pulse Ox 94 L 03/19/17 11:09 Weight - most recent: 192 lb 14.472 oz I&O - last 24 hours: Intake & Output 03/18/17 03/19/17 03/19/17 22:59 06:59 14:59 Intake Total 450 450 900 Output Total 450 600 400 Balance 0 -150 500 Lab Results last 24 hrs: Laboratory Results - last 24 hr 03/19/17 03/19/17 Range/Units 04:45 04:45 WBC 13.1 H (4.5-11.0) K/uL RBC 4.33 (4.30-5.90) M/uL Hgb 14.5 (12.0-15.0) g/dL Hct 40.6 (40.0-54.0) % MCV 94 (80-98) fL MCH 34 H (27-31) pg MCHC 36 (32-36) % Plt Count 278 (150-400) K/uL Neut % (Auto) 70 H (36-66) % Lymph % (Auto) 16 L (24-44) % [place] % (Auto) 11 H (2-6) % Eos % (Auto) 2 (2-4) % Baso % (Auto) 1 (0-1) % Sodium 141 (140-148) mmol/L Potassium 3.9 (3.6-5.2) mmol/L Chloride 106 (100-108) mmol/L Carbon Dioxide 29 (21-32) mmol/L Anion Gap 6.1 (5.0-14.0) mmol/L BUN 8 (7-18) mg/dL Creatinine 1.2 (0.8-1.3) mg/dL Est Cr Clr Drug Dosing 60.98 mL/min Estimated GFR (MDRD) > 60 (>60) Glucose 100 (74-106) mg/dL Calcium 8.0 L (8.5-10.1) mg/dL Maksim Results last 24 hrs: Microbiology 03/17/17 09:40 Aerobic Blood Culture - Preliminary Blood - Arm, Left NO GROWTH AFTER 2 DAYS Anaerobic Blood Culture - Preliminary NO GROWTH AFTER 2 DAYS 03/17/17 09:30 Aerobic Blood Culture - Preliminary Blood - Arm, Left NO GROWTH AFTER 2 DAYS Anaerobic Blood Culture - Preliminary NO GROWTH AFTER 2 DAYS Med Orders - Current: Current Medications Acetaminophen (Tylenol Extra Strength) 1,000 mg PO Q6H PRN PRN Reason: Fever Last Admin: 03/19/17 08:21 Dose: 1,000 mg Acetylcysteine (Mucomyst 20%) 200 mg NEB TIDRT [facility] Last Admin: 03/19/17 07:27 Dose: 200 mg Al Hydroxide/Mg Hydroxide (Mag-Al Plus) 30 ml PO Q4H PRN PRN Reason: Heartburn Albuterol (Proventil Neb Soln) 2.5 mg NEB Q4H PRN PRN Reason: Shortness Of Breath/wheezing Last Admin: 03/19/17 07:27 Dose: 2.5 mg Benzonatate (Tessalon Perles) 200 mg PO TID PRN PRN Reason: Cough Last Admin: 03/18/17 20:18 Dose: 200 mg Guaifenesin/Codeine Phosphate (Robitussin Ac) 10 ml PO Q4H PRN PRN Reason: Cough Last Admin: 03/17/17 19:29 Dose: 10 ml Levofloxacin/Dextrose 750 mg/ (Premix) 150 mls @ 100 mls/hr IV Q24H [facility] Last Admin: 03/18/17 17:34 Dose: 100 mls/hr Clindamycin Phosphate 600 mg/ (Sodium Chloride) 54 mls @ 100 mls/hr IV Q6H [facility] Last Admin: 03/19/17 07:35 Dose: 100 mls/hr Ibuprofen (Motrin) 800 mg PO Q8H PRN PRN Reason: Fever Last Admin: 03/18/17 22:26 Dose: 800 mg Ondansetron HCl (Zofran Odt) 4 mg PO Q6H PRN PRN Reason: Nausea able to take PO Last Admin: 03/18/17 19:44 Dose: 4 mg Ondansetron HCl (Zofran) 4 mg IV Q6H PRN PRN Reason: Nausea/Vomiting Pantoprazole Sodium (Protonix) 40 mg PO BIDAC [facility] Last Admin: 03/19/17 07:24 Dose: 40 mg Sucralfate (Carafate) 1 gm PO QIDACANDBED [facility] Last Admin: 03/19/17 11:05 Dose: 1 gm Discontinued Medications Acetaminophen (Tylenol) 650 mg PO Q4H PRN PRN Reason: Pain (Mild 1-3)/fever Last Admin: 03/17/17 19:23 Dose: 650 mg Acetaminophen (Tylenol) 650 mg RECTAL NOW ONE Stop: 03/17/17 09:25 Last Admin: 03/17/17 09:36 Dose: 650 mg Acetylcysteine (Mucomyst 20%) 200 mg NEB ONETIME ONE Stop: 03/18/17 15:01 Last Admin: 03/18/17 14:41 Dose: 200 mg Albuterol (Proventil Neb Soln) 2.5 mg NEB ONETIME ONE Stop: 03/16/17 15:42 Last Admin: 03/16/17 15:59 Dose: 2.5 mg Benzonatate (Tessalon Perles) 100 mg PO TID PRN PRN Reason: Cough Last Admin: 03/16/17 23:54 Dose: 100 mg Fentanyl (Sublimaze) Confirm Administered Dose 100 mcg .ROUTE .STK-MED ONE Stop: 03/17/17 08:15 Sodium Chloride (Normal Saline) 1,000 mls @ 999 mls/hr IV ASDIRECTED [facility] Last Admin: 03/16/17 15:58 Dose: 999 mls/hr Sodium Chloride (Normal Saline) 1,000 mls @ 125 mls/hr IV ASDIRECTED [facility] Last Admin: 03/18/17 08:51 Dose: 125 mls/hr Midazolam HCl (Versed 1 Mg/Ml) Confirm Administered Dose 2 mg .ROUTE .STK-MED ONE Stop: 03/17/17 08:15 Pantoprazole Sodium (Protonix Iv) 40 mg IV ONETIME ONE Stop: 03/16/17 18:40 Last Admin: 03/16/17 19:45 Dose: 40 mg Propofol (Diprivan 20 Ml) Confirm Administered Dose 200 mg .ROUTE .STK-MED ONE Stop: 03/17/17 08:15 - Exam General: alert, oriented, cooperative, no acute distress Lungs: Normal respiratory effort, Rales, Rhonchi. No: Decreased breath sounds, Crackles, Stridor Cardiovascular: Regular Rate, Regular Rhythm, No Murmurs Abdomen: bowel sounds present, soft, no tenderness, no distension Extremities: no edema Skin: warm, dry, intact - Problem List Review Problem List Initiated/Reviewed/Updated: Yes - My Orders Last 24 Hours: My Active Orders 03/18/17 13:48 Convert IV to Saline Lock [OM.PC] Routine 03/18/17 13:50 RT Acapella [RESPCARE] Routine 03/18/17 14:00 Clindamycin Phosphate [Cleocin] 600 mg Sodium Chloride 0.9% [Normal Saline] 50 ml IV Q6H 03/18/17 21:00 Acetylcysteine [Mucomyst 20%] 200 mg NEB TIDRT 03/19/17 12:01 Zolpidem [Ambien] 5 mg PO BEDTIME PRN - Plan Plan:: Assessment and plan - Left lower lobe pneumonia - seems to be slowly improving, white count is better , he has had recurrent temperature elevations. Continues to experience cough and shortness of breath but significantly improved from admission. -Continue clindamycin and levofloxacin -Sputum culture -Oxygen if needed -Nebulizers as needed -Cough suppressant -Blood cultures if he spikes a fever Severe GERD - history of reflux but symptoms are usually able to be controlled with omeprazole. EGD revealed large erosion. Symptoms have improved since the procedure. -twice daily Proton pump inhibitor (3 months) -Sucralfate x2-4 weeks -Maalox as needed Maintenance issues - - DVT prophylaxis - SCDs and ambulation - GI prophylaxis - PPI - Nutrition - restart diet after the EGD - Martinez catheter - not indicated Disposition - anticipate discharge home after the hospital stay, possibly tomorrow if he is afebrile and symptoms continue to improve
[2017-03-19] MEDS: Ibuprofen 800 MG Tab PO PRN (16:39)
[2017-03-19] MEDS: Levofloxacin/Dextrose 5%-Water 750 MG in Premix Bag 1 BAG IV SCH (16:47)
[2017-03-19] MEDS: Lactobacillus Rhamnosus GG (Probiotic) Cap PO SCH (20:20)
[2017-03-20] MEDS: Albuterol 0.083% 2.5 MG/3 ML Neb Soln NEB PRN ×4 (01:57→21:52)
[2017-03-20] MEDS: Acetaminophen 500 MG Tab PO PRN (02:02)
[2017-03-20] MEDS: Acetylcysteine 20% 200 MG/ML 4 ML Nebulizer Soln SDV NEB SCH ×3 (07:17→21:52)
[2017-03-20] MEDS: Pantoprazole 40 MG Tab.CR PO SCH ×2 (07:30→17:52)
[2017-03-20] MEDS: Sucralfate Suspension 1 GM/10 ML Cup PO SCH ×4 (07:30→19:36)
[2017-03-20] MEDS: Lactobacillus Rhamnosus GG (Probiotic) Cap PO SCH ×2 (09:22→21:52)
[2017-03-20] MEDS: Ibuprofen 800 MG Tab PO PRN ×2 (13:34→22:47)
--- NOTE | 2017-03-20 16:34 | PCM.PN ---
- General Info Date of Service: 03/20/17 Functional Status: Reports: tolerating diet, ambulating, urinating - Review of Systems General: Reports: Fever, Weakness. Denies: Chills Pulmonary: Reports: cough, sputum. Denies: shortness of breath, pleuritic chest pain, hemoptysis, wheezing Cardiovascular: Reports: No Symptoms Gastrointestinal: Reports: No symptoms Systems Review Comment:: This patient has felt improved over the past 24 hours with less shortness of breath and cough. He is continued to have low-grade temperature elevations but fever curve does seem to be slowly decreasing. Vital signs have been stable and he is unable to ambulate good distances in the hallways with normal oxygen saturations. - Patient Data Vitals - most recent: Last Vital Signs Temp 100.3 F 03/20/17 14:25 Pulse 75 03/20/17 13:00 Resp 16 03/20/17 13:00 BP 179/75 H 03/20/17 13:00 Pulse Ox 94 L 03/20/17 13:00 Weight - most recent: 192 lb 14.472 oz I&O - last 24 hours: Intake & Output 03/20/17 03/20/17 03/20/17 06:59 14:59 22:59 Intake Total 50 910 Output Total 700 300 Balance -650 610 Maksim Results last 24 hrs: Microbiology 03/20/17 12:16 Clostridium difficile (PCR) - Final Stool / Feces NEGATIVE CDIFF TOXIN 03/17/17 09:40 Aerobic Blood Culture - Preliminary Blood - Arm, Left NO GROWTH AFTER 3 DAYS Anaerobic Blood Culture - Preliminary NO GROWTH AFTER 3 DAYS 03/17/17 09:30 Aerobic Blood Culture - Preliminary Blood - Arm, Left NO GROWTH AFTER 3 DAYS Anaerobic Blood Culture - Preliminary NO GROWTH AFTER 3 DAYS Med Orders - Current: Current Medications Acetaminophen (Tylenol Extra Strength) 1,000 mg PO Q6H PRN PRN Reason: Fever Last Admin: 03/20/17 02:02 Dose: 1,000 mg Acetylcysteine (Mucomyst 20%) 200 mg NEB TIDRT [facility]J Last Admin: 03/20/17 12:59 Dose: 200 mg Al Hydroxide/Mg Hydroxide (Mag-Al Plus) 30 ml PO Q4H PRN PRN Reason: Heartburn Albuterol (Proventil Neb Soln) 2.5 mg NEB Q4H PRN PRN Reason: Shortness Of Breath/wheezing Last Admin: 03/20/17 12:59 Dose: 2.5 mg Benzonatate (Tessalon Perles) 200 mg PO TID PRN PRN Reason: Cough Last Admin: 03/18/17 20:18 Dose: 200 mg Guaifenesin/Codeine Phosphate (Robitussin Ac) 10 ml PO Q4H PRN PRN Reason: Cough Last Admin: 03/17/17 19:29 Dose: 10 ml Levofloxacin/Dextrose 750 mg/ (Premix) 150 mls @ 100 mls/hr IV Q24H [facility] Last Admin: 03/19/17 16:47 Dose: 100 mls/hr Clindamycin Phosphate 600 mg/ (Sodium Chloride) 54 mls @ 100 mls/hr IV Q6H [facility] Last Admin: 03/20/17 14:25 Dose: 100 mls/hr Ibuprofen (Motrin) 800 mg PO Q8H PRN PRN Reason: Fever Last Admin: 03/20/17 13:34 Dose: 800 mg Lactobacillus Rhamnosus (Culturelle) 2 cap PO BID [facility] Last Admin: 03/20/17 09:22 Dose: 2 cap Ondansetron HCl (Zofran Odt) 4 mg PO Q6H PRN PRN Reason: Nausea able to take PO Last Admin: 03/18/17 19:44 Dose: 4 mg Ondansetron HCl (Zofran) 4 mg IV Q6H PRN PRN Reason: Nausea/Vomiting Pantoprazole Sodium (Protonix) 40 mg PO BIDAC [facility] Last Admin: 03/20/17 07:30 Dose: 40 mg Sucralfate (Carafate) 1 gm PO QIDACANDBED [facility] Last Admin: 03/20/17 11:30 Dose: 1 gm Zolpidem Tartrate (Ambien) 5 mg PO BEDTIME PRN PRN Reason: Insomnia Discontinued Medications Acetaminophen (Tylenol) 650 mg PO Q4H PRN PRN Reason: Pain (Mild 1-3)/fever Last Admin: 03/17/17 19:23 Dose: 650 mg Acetaminophen (Tylenol) 650 mg RECTAL NOW ONE Stop: 03/17/17 09:25 Last Admin: 03/17/17 09:36 Dose: 650 mg Acetylcysteine (Mucomyst 20%) 200 mg NEB ONETIME ONE Stop: 03/18/17 15:01 Last Admin: 03/18/17 14:41 Dose: 200 mg Albuterol (Proventil Neb Soln) 2.5 mg NEB ONETIME ONE Stop: 03/16/17 15:42 Last Admin: 03/16/17 15:59 Dose: 2.5 mg Benzonatate (Tessalon Perles) 100 mg PO TID PRN PRN Reason: Cough Last Admin: 03/16/17 23:54 Dose: 100 mg Fentanyl (Sublimaze) Confirm Administered Dose 100 mcg .ROUTE .STK-MED ONE Stop: 03/17/17 08:15 Sodium Chloride (Normal Saline) 1,000 mls @ 999 mls/hr IV ASDIRECTED [facility] Last Admin: 03/16/17 15:58 Dose: 999 mls/hr Sodium Chloride (Normal Saline) 1,000 mls @ 125 mls/hr IV ASDIRECTED [facility] Last Admin: 03/18/17 08:51 Dose: 125 mls/hr Midazolam HCl (Versed 1 Mg/Ml) Confirm Administered Dose 2 mg .ROUTE .STK-MED ONE Stop: 03/17/17 08:15 Pantoprazole Sodium (Protonix Iv) 40 mg IV ONETIME ONE Stop: 03/16/17 18:40 Last Admin: 03/16/17 19:45 Dose: 40 mg Propofol (Diprivan 20 Ml) Confirm Administered Dose 200 mg .ROUTE .STK-MED ONE Stop: 03/17/17 08:15 - Exam Quality Assessment: DVT prophylaxis General: alert, oriented, cooperative, no acute distress Lungs: Clear to auscultation, Normal respiratory effort Cardiovascular: Regular Rate, Regular Rhythm, No Murmurs Abdomen: bowel sounds present, soft, no tenderness, no distension Extremities: no edema Skin: warm, dry, intact - Problem List Review Problem List Initiated/Reviewed/Updated: Yes - My Orders Last 24 Hours: My Active Orders 03/19/17 21:00 Lactobacillus Rhamnosus GG [Culturelle] 2 cap PO BID - Plan Plan:: Assessment and plan - Left lower lobe pneumonia - continued slow improvement, recurrent low-grade temperature elevations. -Continue clindamycin and levofloxacin -Sputum culture -Oxygen if needed -Nebulizers as needed -Cough suppressant Severe GERD - symptomatically improved with current management. Biopsy results consistent with Turner's esophagus -twice daily Proton pump inhibitor (3 months) -Sucralfate x2-4 weeks -Maalox as needed Maintenance issues - - DVT prophylaxis - SCDs and ambulation - GI prophylaxis - PPI - Nutrition - restart diet after the EGD - Martinez catheter - not indicated Disposition - anticipate discharge home tomorrow
[2017-03-20] MEDS: Levofloxacin/Dextrose 5%-Water 750 MG in Premix Bag 1 BAG IV SCH (17:44)
--- NOTE | 2017-03-20 22:31 | PCM.SN ---
- Free Text/Narrative Note: call from [address] [place] [address] at 22:16 elevated blood pressure, denies any pain, chest pain, shortness of breath, fever , head pain or other symptoms a; elevated blood pressure p; Mr. Luo has had intermittent elevated blood pressures since admission. will continue to monitor
[2017-03-21] MEDS ORDERED: Amoxicillin/Clavulanate K 875-125 MG Tab PO SCH
[2017-03-21] MEDS: Codeine/guaiFENesin 100mg-10 MG/5 ML Syrup 10 ML Cup PO PRN (01:45)
[2017-03-21] MEDS: Pantoprazole 40 MG Tab.CR PO SCH (07:07)
[2017-03-21] MEDS: Sucralfate Suspension 1 GM/10 ML Cup PO SCH ×2 (07:07→11:01)
[2017-03-21] MEDS: Acetylcysteine 20% 200 MG/ML 4 ML Nebulizer Soln SDV NEB SCH (07:19)
[2017-03-21] MEDS: Albuterol 0.083% 2.5 MG/3 ML Neb Soln NEB PRN (07:20)
[2017-03-21] MEDS: Lactobacillus Rhamnosus GG (Probiotic) Cap PO SCH (09:14)
[2017-03-21 10:42] VITALS: BP 171/82
--- NOTE | 2017-03-21 12:01 | PCM.DCSUM1 ---
Discharge Summary - Hospital Course Brief History: This patient is a 67-year-old gentleman who was admitted through the emergency department with progressive weakness, cough, and shortness of breath secondary to pneumonia. - Discharge Data Discharge Date: 03/21/17 Discharge Disposition: Home, Self-Care 01 Condition: Fair - Discharge Diagnosis/Problem(s) (1) Huggins's esophagus SNOMED Code(s): 240728522 ICD Code: K22.70 - HUGGINS'S ESOPHAGUS WITHOUT DYSPLASIA Status: Acute Current Visit: Yes (2) Pneumonia SNOMED Code(s): 023085066 ICD Code: J18.9 - PNEUMONIA, UNSPECIFIED ORGANISM Status: Acute Current Visit: Yes Qualifiers: Pneumonia type: due to unspecified organism Laterality: left Lung location: lower lobe of lung Qualified Code(s): J18.1 - Lobar pneumonia, unspecified organism (3) GERD (gastroesophageal reflux disease) SNOMED Code(s): 014452053 ICD Code: K21.9 - GASTRO-ESOPHAGEAL REFLUX DISEASE WITHOUT ESOPHAGITIS Status: Acute Current Visit: Yes Qualifiers: Esophagitis presence: esophagitis presence not specified Qualified Code(s) : K21.9 - Gastro-esophageal reflux disease without esophagitis - Patient Summary/Data Consults: Consultations 03/16/17 18:39 Consult to Physician [CONS] Routine Consulting Provider: Ramu Aragon Call Completed to Consulting Physician: Yes Reason for Consult: severe GERD, consider EGD Person Notified: BDB Date Notified: 03/16/17 Special Instructions: NPO after midnight, planning EGD in am Hospital Course: This patient is a 67-year-old gentleman who presented the emergency room because of fever, cough, weakness, and shortness of breath. Chest x-ray showed evidence of a left lung infiltrate and white blood cell count was elevated consistent with underlying bacterial infection. Blood cultures were obtained and he was admitted to the hospital on IV antibiotic therapy with levofloxacin. Blood cultures were obtained at the time of admission and remained negative throughout the hospital stay. IV fluids were used initially for hydration. Patient also reported symptoms of ongoing severe reflux for the past several weeks prior to admission. This did raise the possibility of possible aspiration and clindamycin was added to his antibiotic regimen. Surgical consult was obtained with Dr. Aragon, EGD was performed which did document evidence of reflux in addition to Huggins's esophagus. Biopsies were obtained during the EGD and did come back positive for Huggins's esophagus, no precancerous changes were noted. Symptoms gradually improved with use of the antibiotics in addition to nebulizer therapy and supplemental oxygen. By the time of discharge she was off of oxygen with good saturations on room air. White blood cell count has improved and fever had almost totally resolved. He will be discharged home on oral Protonix twice daily for 2 weeks then once daily thereafter as well as Carafate 1 g 4 times daily. He will be treated with an additional 6 days of oral antibiotic therapy with Augmentin 875 mg twice daily. Activity will be as tolerated, we did review important dietary changes to make given his reflux and esophagitis. He is aware that he will need to have regular followup upper endoscopies for monitoring of the Huggins's esophagus. He would like to see a terminal clerk for further recommendations concerning options for management of his significant reflux, he is not sure if like to go for this evaluation and will discuss it further with Dr. Erickson on followup. All of appointment will be scheduled with Dr. Erickson within one week. - Patient Instructions Diet: Usual Diet as Tolerated Activity: As Tolerated Other/Special Instructions: Please schedule followup appointment with Dr. Erickson within one week. Take a probiotic twice daily for at least 2 weeks. - Discharge Plan Prescriptions/Med Rec: Amoxicillin/Potassium Clav [Augmentin 875-125 Tablet] 1 each PO BID #12 tablet Pantoprazole [ProTONIX] 40 mg PO BIDAC #30 tab.cr Sucralfate [Carafate] 1 gm PO QIDACANDBED #120 cup Home Medications: Home Meds Aspirin [Low Dose Aspirin EC] 81 mg PO DAILY 07/20/14 [History] Amoxicillin/Potassium Clav [Augmentin 875-125 Tablet] 1 each PO BID #12 tablet 03/21/17 [Rx] Pantoprazole [ProTONIX] 40 mg PO BIDAC #30 tab.cr 03/21/17 [Rx] Sucralfate [Carafate] 1 gm PO QIDACANDBED #120 cup 03/21/17 [Rx] Patient Handouts: Huggins Esophagus Referrals: Raffy Erickson MD [Primary Care Provider] - - Patient Data Vitals - Most Recent: Last Vital Signs Temp 98.6 F 03/21/17 10:41 Pulse 74 03/21/17 10:41 Resp 18 03/21/17 10:41 BP 171/82 H 03/21/17 10:41 Pulse Ox 97 03/21/17 10:41 Weight - Most Recent: 192 lb 14.472 oz I&O - Last 24 hours: Intake & Output 03/20/17 03/21/17 03/21/17 22:59 06:59 14:59 Intake Total 955 305 Output Total 300 500 Balance 655 305 -500 SLOAN Results - Last 24 hrs: Microbiology 03/17/17 09:40 Aerobic Blood Culture - Preliminary Blood - Arm, Left NO GROWTH AFTER 4 DAYS Anaerobic Blood Culture - Preliminary NO GROWTH AFTER 4 DAYS 03/17/17 09:30 Aerobic Blood Culture - Preliminary Blood - Arm, Left NO GROWTH AFTER 4 DAYS Anaerobic Blood Culture - Preliminary NO GROWTH AFTER 4 DAYS 03/20/17 12:16 Clostridium difficile (PCR) - Final Stool / Feces NEGATIVE CDIFF TOXIN Med Orders - Current: Current Medications Acetaminophen (Tylenol Extra Strength) 1,000 mg PO Q6H PRN PRN Reason: Fever Last Admin: 03/20/17 02:02 Dose: 1,000 mg Acetylcysteine (Mucomyst 20%) 200 mg NEB TIDRT [facility] Last Admin: 03/21/17 07:19 Dose: 200 mg Al Hydroxide/Mg Hydroxide (Mag-Al Plus) 30 ml PO Q4H PRN PRN Reason: Heartburn Albuterol (Proventil Neb Soln) 2.5 mg NEB Q4H PRN PRN Reason: Shortness Of Breath/wheezing Last Admin: 03/21/17 07:20 Dose: 2.5 mg Benzonatate (Tessalon Perles) 200 mg PO TID PRN PRN Reason: Cough Last Admin: 03/18/17 20:18 Dose: 200 mg Guaifenesin/Codeine Phosphate (Robitussin Ac) 10 ml PO Q4H PRN PRN Reason: Cough Last Admin: 03/21/17 01:45 Dose: 10 ml Levofloxacin/Dextrose 750 mg/ (Premix) 150 mls @ 100 mls/hr IV Q24H [facility] Last Admin: 03/20/17 17:44 Dose: 100 mls/hr Clindamycin Phosphate 600 mg/ (Sodium Chloride) 54 mls @ 100 mls/hr IV Q6H [facility] Last Admin: 03/21/17 07:12 Dose: 100 mls/hr Ibuprofen (Motrin) 800 mg PO Q8H PRN PRN Reason: Fever Last Admin: 03/20/17 22:47 Dose: 800 mg Lactobacillus Rhamnosus (Culturelle) 2 cap PO BID [facility] Last Admin: 03/21/17 09:14 Dose: 2 cap Ondansetron HCl (Zofran Odt) 4 mg PO Q6H PRN PRN Reason: Nausea able to take PO Last Admin: 03/18/17 19:44 Dose: 4 mg Ondansetron HCl (Zofran) 4 mg IV Q6H PRN PRN Reason: Nausea/Vomiting Pantoprazole Sodium (Protonix) 40 mg PO BIDAC [facility] Last Admin: 03/21/17 07:07 Dose: 40 mg Sucralfate (Carafate) 1 gm PO QIDACANDBED [facility] Last Admin: 03/21/17 11:01 Dose: 1 gm Zolpidem Tartrate (Ambien) 5 mg PO BEDTIME PRN PRN Reason: Insomnia Discontinued Medications Acetaminophen (Tylenol) 650 mg PO Q4H PRN PRN Reason: Pain (Mild 1-3)/fever Last Admin: 03/17/17 19:23 Dose: 650 mg Acetaminophen (Tylenol) 650 mg RECTAL NOW ONE Stop: 03/17/17 09:25 Last Admin: 03/17/17 09:36 Dose: 650 mg Acetylcysteine (Mucomyst 20%) 200 mg NEB ONETIME ONE Stop: 03/18/17 15:01 Last Admin: 03/18/17 14:41 Dose: 200 mg Albuterol (Proventil Neb Soln) 2.5 mg NEB ONETIME ONE Stop: 03/16/17 15:42 Last Admin: 03/16/17 15:59 Dose: 2.5 mg Benzonatate (Tessalon Perles) 100 mg PO TID PRN PRN Reason: Cough Last Admin: 03/16/17 23:54 Dose: 100 mg Fentanyl (Sublimaze) Confirm Administered Dose 100 mcg .ROUTE .STK-MED ONE Stop: 03/17/17 08:15 Sodium Chloride (Normal Saline) 1,000 mls @ 999 mls/hr IV ASDIRECTED [facility] Last Admin: 03/16/17 15:58 Dose: 999 mls/hr Sodium Chloride (Normal Saline) 1,000 mls @ 125 mls/hr IV ASDIRECTED [facility] Last Admin: 03/18/17 08:51 Dose: 125 mls/hr Midazolam HCl (Versed 1 Mg/Ml) Confirm Administered Dose 2 mg .ROUTE .STK-MED ONE Stop: 03/17/17 08:15 Pantoprazole Sodium (Protonix Iv) 40 mg IV ONETIME ONE Stop: 03/16/17 18:40 Last Admin: 03/16/17 19:45 Dose: 40 mg Propofol (Diprivan 20 Ml) Confirm Administered Dose 200 mg .ROUTE .STK-MED ONE Stop: 03/17/17 08:15 *Q Meaningful Use (DIS) - VTE *Q VTE Criteria *Q: - Stroke *Q Stroke Criteria *Q: - AMI *Q AMI Criteria *Q:
[2017-03-21] MEDS ORDERED: Amoxicillin/Clavulanate K 875-125 MG Tab ONE (22:01)
== END 2017-03-21 12:29 | disposition home or self-care (01) | DRG 380 ==
LOC: JP.ED 14:14 → JP.MS 17:23
PROVIDERS: ADMIT Internal Medicine; ATTEND Hospitalist
PROC: 0DB48ZX Excision of Esophagogastric Junction, Via Natural or Artificial Opening Endoscopic, Diagnostic (ICD-10-PCS; principal; 2017-03-17)
DX: K22.70 Barrett's esophagus without dysplasia (principal); J18.1 Lobar pneumonia, unspecified organism; K21.9 Gastro-esophageal reflux disease without esophagitis; E78.00 Pure hypercholesterolemia, unspecified; I10 Essential (primary) hypertension; R06.02 Shortness of breath
CPT/HCPCS: 36415; 71020 ×2; 80053; 81001; 83880; 84550; 85025; 86140; 93005; 93010; 96361; 99284; 99285; J7040; 80048; 85027; 87040; 87493; 88305; 94640-76; 94667; 96360; 96365; A9270-GY; C9113; J1956; J2250; J2704; J3010; J7050; S0077

== ENCOUNTER 2017-03-22 12:20 | Inpatient (IN) | payer MEDICARE, BC ==
--- NOTE | 2017-03-22 13:48 | EDM.PDOC ---
[id number] 4d DIZZY FEVER Time Seen by Provider: 03/22/17 13:30 Source of Information: Reports: Patient, Family History Limitations: Reports: No limitations - History of Present Illness INITIAL COMMENTS - FREE TEXT/NARRATIVE: 59-year-old male who was discharged yesterday after 5 days of treatment for pneumonia is in today for a recheck because he has spiked a fever 3 times over the past 12 hours since discharge. His blood pressure is also very labile. He has some mild dizziness and intermittent shortness of breath. Prior to coming in he took a long hot shower and had a persistent cough with some sputum production and now feels much better. Severity: mild Improves with: Reports: Other (Apparently a hot shower with vigorous coughing has improved his breathing) Associated Symptoms: Reports: fever/chills, shortness of breath, weakness, other (Dizziness, intermittent). Denies: headaches 0 Pain Score (Numeric/FACES): 0 - Related Data Allergies Allergy/AdvReac Type Severity Reaction Status Date / Time No Known Allergies Allergy Verified 03/22/17 13:07 Home Meds: Home Meds Aspirin [Low Dose Aspirin EC] 81 mg PO DAILY 07/20/14 [History] Amoxicillin/Potassium Clav [Augmentin 875-125 Tablet] 1 each PO BID #12 tablet 03/21/17 [Rx] Pantoprazole [ProTONIX] 40 mg PO BIDAC #30 tab.cr 03/21/17 [Rx] Sucralfate [Carafate] 1 gm PO QIDACANDBED #120 cup 03/21/17 [Rx] Past Medical History HEENT History: Reports: Cataract, Impaired vision, Otitis media Cardiovascular History: Reports: High cholesterol, Hypertension, Other (see below) Other Cardiovascular History: "[place] is watching left carotid artery" Respiratory History: Reports: Pneumonia, recurrent Other Respiratory History: pneumonia x2 Gastrointestinal History: Reports: Diverticulosis, GERD Musculoskeletal History: Reports: Other (see below) Other Musculoskeletal History: chronic right shoulder pain from playing softball when younger - Infectious Disease History Infectious Disease History: Reports: Chicken pox, Measles, Mumps - Past Surgical History HEENT Surgical History: Reports: Cataract surgery, Oral surgery, Other (see below) Other HEENT Surgeries/Procedures: both eyes. Some ear problems - [facility] is looking into it, has an appt in [place] on 10/23/2017 Cardiovascular Surgical History: Reports: None Respiratory Surgical History: Reports: None GI Surgical History: Reports: Cholecystectomy, Colonoscopy Musculoskeletal Surgical History: Reports: Other (see below) Other Musculoskeletal Surgeries/Procedures:: Right ankle and knee surgery Social & Family History - Family History GI: Reports: Cirrhosis, GERD - Tobacco Use Smoking Status *Q: Former Smoker Years of Tobacco use: 3 Used Tobacco, but Quit: Yes Month Tobacco Last Used: 11/1968 Second Hand Smoke Exposure: No - Caffeine Use Caffeine Use: Reports: None - Alcohol Use Days Per Week of Alcohol Use: 0 - Recreational Drug Use Recreational Drug Use: No ED ROS GENERAL - Review of Systems Review Of Systems: See Below Constitutional: Reports: fever, chills, malaise HEENT: Denies: Ear pain, Throat pain Respiratory: Reports: Shortness of Breath, Cough, Sputum Cardiovascular: Denies: Chest pain Endocrine: Reports: fatigue GI/Abdominal: Denies: Abdominal pain, Nausea, Vomiting Skin: Reports: no symptoms Neurological: Reports: Dizziness. Denies: Headache Psychiatric: Reports: Anxiety ED EXAM, GENERAL - Physical Exam Exam: See Below Exam Limited By: No limitations General Appearance: alert, no apparent distress Respiratory/Chest: no respiratory distress, lungs clear Cardiovascular: regular rate, rhythm Extremities: normal inspection Neurological: alert, oriented Course - Vital Signs Last Recorded V/S: Last Vital Signs Temp 97.3 F 03/23/17 07:05 Pulse 58 L 03/23/17 07:05 Resp 20 03/23/17 07:05 BP 135/77 03/23/17 07:05 Pulse Ox 90 L 03/23/17 07:05 - Orders/Labs/Meds Orders: Active Orders 24 hr Category Date Time Status Ang Chest [CT] Stat Exams 03/22/17 15:12 Taken CULTURE BLOOD [BC] Urgent Lab 03/22/17 14:10 Received CULTURE BLOOD [BC] Urgent Lab 03/22/17 14:20 Received Blood Culture x2 Reflex Set [OM.PC] Urgent Oth 03/22/17 13:59 Ordered Medication Orders Acetaminophen (Tylenol) 650 mg PO Q4H PRN PRN Reason: Pain (Mild 1-3)/fever Albuterol (Proventil Neb Soln) 2.5 mg NEB Q4H PRN PRN Reason: Shortness Of Breath/wheezing Albuterol/Ipratropium (Duoneb 3.0-0.5 Mg/3 Ml) 3 ml NEB QIDRT [facility] Last Admin: 03/23/17 07:20 Dose: 3 ml Admin: 03/22/17 21:03 Dose: 3 ml Aspirin (Halfprin) 81 mg PO DAILY [facility] Docusate Sodium (Colace) 100 mg PO BID PRN PRN Reason: Constipation Enoxaparin Sodium (Lovenox) 40 mg SUBCUT Q24H [facility] Last Admin: 03/22/17 17:58 Dose: 40 mg Piperacillin/Tazobactam/ (Dextrose 3.375 gm/ Premix) 50 mls @ 100 mls/hr IV Q6H [facility] Last Admin: 03/23/17 04:43 Dose: 100 mls/hr Admin: 03/22/17 22:33 Dose: 100 mls/hr Admin: 03/22/17 17:05 Dose: 100 mls/hr Sodium Chloride (Normal Saline) 1,000 mls @ 125 mls/hr IV ASDIRECTED [facility] Last Admin: 03/23/17 02:52 Dose: 125 mls/hr Infusion: 03/23/17 01:07 Dose: 125 mls/hr Admin: 03/22/17 17:07 Dose: 125 mls/hr Vancomycin HCl 1.3 gm/ Sodium (Chloride) 250 mls @ 167 mls/hr IV Q12H [facility] Last Admin: 03/23/17 06:05 Dose: 167 mls/hr Ibuprofen (Motrin) 600 mg PO Q6H PRN PRN Reason: Pain/Fever Last Admin: 03/23/17 02:52 Dose: 600 mg Admin: 03/22/17 17:05 Dose: 600 mg Magnesium Hydroxide (Milk Of Magnesia) 30 ml PO Q12H PRN PRN Reason: Constipation Melatonin (Melatonin) 9 mg PO BEDTIME [facility] Last Admin: 03/22/17 21:06 Dose: 9 mg Ondansetron HCl (Zofran) 4 mg IV Q4H PRN PRN Reason: Nausea/Vomiting Oxycodone HCl (Oxycodone) 5 mg PO Q4H PRN PRN Reason: Pain (moderate 4-6) Pantoprazole Sodium (Protonix) 40 mg PO BIDAC [facility] Last Admin: 03/23/17 06:58 Dose: 40 mg Admin: 03/22/17 17:58 Dose: 40 mg Polyethylene Glycol (Miralax) 17 gm PO DAILY PRN PRN Reason: Constipation Sodium Chloride (Saline Flush) 10 ml FLUSH ASDIRECTED PRN PRN Reason: Keep Vein Open Sucralfate (Carafate) 1 gm PO QIDACANDBED [facility] Last Admin: 03/23/17 06:58 Dose: 1 gm Admin: 03/22/17 20:04 Dose: 1 gm Admin: 03/22/17 17:58 Dose: 1 gm Labs: Laboratory Tests 03/22/17 03/22/17 Range/Units 14:10 14:10 WBC 31.1 H* (4.5-11.0) K/uL RBC 4.95 (4.30-5.90) M/uL Hgb 16.0 H (12.0-15.0) g/dL Hct 46.0 (40.0-54.0) % MCV 93 (80-98) fL MCH 32 H (27-31) pg MCHC 35 (32-36) % Plt Count 356 (150-400) K/uL Neut % (Auto) 92 H (36-66) % Lymph % (Auto) 5 L (24-44) % [place] % (Auto) 3 (2-6) % Eos % (Auto) 0 L (2-4) % Baso % (Auto) 0 (0-1) % Sodium 136 L (140-148) mmol/L Potassium 3.7 (3.6-5.2) mmol/L Chloride 100 (100-108) mmol/L Carbon Dioxide 27 (21-32) mmol/L Anion Gap 12.7 (5.0-14.0) mmol/L BUN 10 (7-18) mg/dL Creatinine 1.2 (0.8-1.3) mg/dL Est Cr Clr Drug Dosing 60.83 mL/min Estimated GFR (MDRD) > 60 (>60) Glucose 93 (74-106) mg/dL Calcium 8.4 L (8.5-10.1) mg/dL Meds: Medications Generic Name Dose Route Start Last Admin Trade Name Freq PRN Reason Stop Dose Admin Acetaminophen 650 mg 03/22/17 15:58 Tylenol PO Q4H PRN Pain (Mild 1-3)/fever Albuterol 2.5 mg 03/22/17 15:58 Proventil Neb Soln NEB Q4H PRN Shortness Of Breath/wheezing Albuterol/Ipratropium 3 ml 03/22/17 21:00 03/23/17 07:20 Duoneb 3.0-0.5 Mg/3 Ml NEB 3 ml QIDRT [facility] Administration Aspirin 81 mg 03/23/17 09:00 Halfprin PO DAILY [facility] Docusate Sodium 100 mg 03/22/17 15:58 Colace PO BID PRN Constipation Enoxaparin Sodium 40 mg 03/22/17 17:00 03/22/17 17:58 Lovenox SUBCUT 40 mg Q24H [facility] Administration Piperacillin/Tazobactam/ 50 mls @ 100 mls/hr 03/22/17 17:00 03/23/17 04:43 Dextrose 3.375 gm/ Premix IV 100 mls/hr Q6H [facility] Administration Sodium Chloride 1,000 mls @ 125 mls/hr 03/22/17 15:58 03/23/17 02:52 Normal Saline IV 125 mls/hr ASDIRECTED [facility]J Administration Vancomycin HCl 1.3 gm/ Sodium 250 mls @ 167 mls/hr 03/23/17 06:00 03/23/17 06 :05 Chloride IV 167 mls/hr Q12H [facility] Administration Ibuprofen 600 mg 03/22/17 15:58 03/23/17 02:52 Motrin PO 600 mg Q6H PRN Administration Pain/Fever Magnesium Hydroxide 30 ml 03/22/17 15:58 Milk Of Magnesia PO Q12H PRN Constipation Melatonin 9 mg 03/22/17 21:00 03/22/17 21:06 Melatonin PO 9 mg BEDTIME [facility] Administration Ondansetron HCl 4 mg 03/22/17 15:58 Zofran IV Q4H PRN Nausea/Vomiting Oxycodone HCl 5 mg 03/22/17 15:58 Oxycodone PO Q4H PRN Pain (moderate 4-6) Pantoprazole Sodium 40 mg 03/22/17 16:30 03/23/17 06:58 Protonix PO 40 mg BIDAC [facility] Administration Polyethylene Glycol 17 gm 03/22/17 15:58 Miralax PO DAILY PRN Constipation Sodium Chloride 10 ml 03/22/17 15:58 Saline Flush FLUSH ASDIRECTED PRN Keep Vein Open Sucralfate 1 gm 03/22/17 17:00 03/23/17 06:58 Carafate PO 1 gm QIDACANDBED [facility]J Administration Discontinued Medications Generic Name Dose Route Start Last Admin Trade Name Freq PRN Reason Stop Dose Admin Albuterol/Ipratropium 3 ml 03/22/17 16:30 03/22/17 17:58 Duoneb 3.0-0.5 Mg/3 Ml NEB 03/22/17 16:31 3 ml ONETIME ONE Administration Sodium Chloride 100 mls @ 4 mls/sec 03/22/17 15:30 03/22/17 15:34 Normal Saline IV 03/22/17 16:30 4 mls/sec ASDIRECTED BJ Administration Vancomycin HCl 1.7 gm/ Sodium 250 mls @ 125 mls/hr 03/22/17 18:00 03/22/17 18 :15 Chloride IV 03/22/17 19:59 125 mls/hr ONETIME ONE Administration Iopamidol 100 ml 03/22/17 15:30 03/22/17 15:34 Isovue-370 (76%) IV 03/22/17 16:30 100 ml . DIRECTED BJ Administration Vancomycin HCl 1 gm 03/22/17 16:00 Vancomycin IV 03/22/17 18:00 .PHARMACY TO DOSE BJ - Re-Assessments/Exams Free Text/Narrative Re-Assessment/Exam: 03/22/17 13:48 Patient's vitals were excellent on arrival to ER with a blood pressure that was normal and a temperature 98.6. A two-view chest x-ray was obtained. 03/22/17 14:36 Chest x-ray now shows bilateral upper lobe infiltrates. White count is 31,000. I asked Dr. Kasper of the hospital service to see the patient for reassessment and possible admission. Departure - Departure Time of Disposition: 16:17 Disposition: Admitted As Inpatient 65 Condition: fair Clinical Impression: Pneumonia Qualifiers: Pneumonia type: due to unspecified organism Laterality: bilateral Lung location : upper lobe of lung Qualified Code(s): J18.9 - Pneumonia, unspecified organism - My Orders Last 24 Hours: My Active Orders 03/22/17 13:59 Blood Culture x2 Reflex Set [OM.PC] Urgent 03/22/17 14:10 CULTURE BLOOD [BC] Urgent 03/22/17 14:20 CULTURE BLOOD [BC] Urgent - Assessment/Plan Last 24 Hours: My Active Orders 03/22/17 13:59 Blood Culture x2 Reflex Set [OM.PC] Urgent 03/22/17 14:10 CULTURE BLOOD [BC] Urgent 03/22/17 14:20 CULTURE BLOOD [BC] Urgent
--- NOTE | 2017-03-22 14:05 | CR ---
Chest 2V HISTORY: Dyspnea COMPARISON: 03/16/2017. FINDINGS: Diffuse airspace disease in the peripheral margin of the right and left midlung zone. No s ignificant effusion. Cardiac size normal. No acute congestive change. Impression: Subtle diffuse airspace disease bilaterally.
--- NOTE | 2017-03-22 15:27 | PCM.HP ---
H&P History of Present Illness - General Date of Service: 03/22/17 Admit Problem/Dx: Admission Diagnosis/Problem Admission Diagnosis/Problem Pneumonia Source of Information: Patient, Family, Old records, Provider, RN notes reviewed History Limitations: Reports: No limitations - History of Present Illness Initial Comments - Free Text/Narative: Mr. Luo is a 67-year-old gentleman who is readmitted to the hospital with fever, hypoxia, cough, secondary to bilateral pneumonia. He was just discharged from this facility yesterday, after admission for management of pneumonia. He presented on March 17 with similar symptoms. At that time his white blood cell count was elevated and there was suggestion of a infiltrate at the left base. Blood cultures were obtained at the time of admission and remained negative throughout his hospital stay. He was treated with IV levofloxacin and because of the possibility of aspiration clindamycin was added to that regimen. He's had ongoing difficulty with esophageal reflux and was seen by Dr. Aragon during that admission, EGD was performed which did show evidence of Turner's esophagitis and reflux. He was treated with Protonix IV twice daily and oral Carafate 4 times daily. He improved over the next several days of hospitalization no recurrent significant fevers and marked improvement in his white blood cell count. He was discharged home on oral antibiotic therapy with Augmentin. Shortly after arriving home he developed recurrent cough, shortness of breath, and fever. Fevers persisted over the past 24 hours and frequently were above 102. He represented to the emergency department today, white count is markedly elevated 31,000 and he is noted to be hypoxic with oxygen saturation of 89% on room air. Chest x-ray shows faint perihilar infiltrates. - Related Data Allergies/Adverse Reactions: Allergies Allergy/AdvReac Type Severity Reaction Status Date / Time No Known Allergies Allergy Verified 03/22/17 13:07 Home Medications: Home Meds Aspirin [Low Dose Aspirin EC] 81 mg PO DAILY 07/20/14 [History] Amoxicillin/Potassium Clav [Augmentin 875-125 Tablet] 1 each PO BID #12 tablet 03/21/17 [Rx] Pantoprazole [ProTONIX] 40 mg PO BIDAC #30 tab.cr 03/21/17 [Rx] Sucralfate [Carafate] 1 gm PO QIDACANDBED #120 cup 03/21/17 [Rx] Past Medical History HEENT History: Reports: Cataract, Impaired vision, Otitis media Cardiovascular History: Reports: High cholesterol, Hypertension, Other (see below) Other Cardiovascular History: "[facility] is [place] [facility]" Respiratory History: Reports: Pneumonia, recurrent Other Respiratory History: pneumonia x2 Gastrointestinal History: Reports: Diverticulosis, GERD Musculoskeletal History: Reports: Other (see below) Other Musculoskeletal History: chronic right shoulder pain from playing softball when younger - Infectious Disease History Infectious Disease History: Reports: Chicken pox, Measles, Mumps - Past Surgical History HEENT Surgical History: Reports: Cataract surgery, Oral surgery, Other (see below) Other HEENT Surgeries/Procedures: both eyes. Some ear problems - [facility] an appt in [place] on 10/23/2017 Cardiovascular Surgical History: Reports: None Respiratory Surgical History: Reports: None GI Surgical History: Reports: Cholecystectomy, Colonoscopy Musculoskeletal Surgical History: Reports: Other (see below) Other Musculoskeletal Surgeries/Procedures:: Right ankle and knee surgery Social & Family History - Family History GI: Reports: Cirrhosis, GERD - Tobacco Use Smoking Status *Q: Never Smoker Years of Tobacco use: 3 Used Tobacco, but Quit: Yes Month Tobacco Last Used: 11/1968 Second Hand Smoke Exposure: No - Caffeine Use Caffeine Use: Reports: None - Alcohol Use Days Per Week of Alcohol Use: 0 - Recreational Drug Use Recreational Drug Use: No H&P Review of Systems - Review of Systems: Review Of Systems: See Below General: Reports: fever, chills, weakness, fatigue, diaphoresis, decreased appetite HEENT: Reports: no symptoms Pulmonary: Reports: Shortness of Breath, Cough, Sputum. Denies: Wheezing, Pleuritic Chest Pain, Hemoptysis Cardiovascular: Reports: dyspnea on exertion. Denies: chest pain, palpitations , orthopnea, PND, edema, lightheadedness, syncope Gastrointestinal: Reports: No symptoms Genitourinary: Reports: no symptoms Musculoskeletal: Reports: no symptoms Skin: Reports: no symptoms Psychiatric: Reports: no symptoms Neurological: Reports: No Symptoms Hematologic/Lymphatic: Reports: no symptoms Immunologic: Reports: no symptoms Exam - Exam Exam: See Below - Vital Signs Vital Signs: Last Vital Signs Temp 98.6 F 03/22/17 13:04 Pulse 71 03/22/17 13:04 Resp 14 03/22/17 13:04 BP 131/73 03/22/17 13:04 Pulse Ox 89 L 03/22/17 13:04 Weight: 187 lb 6.287 oz - Exam Quality Assessment: supplemental oxygen, DVT prophylaxis General: alert, oriented, cooperative, moderate distress HEENT: Conjunctiva clear, EOMI, Hearing intact, Mucosa moist & pink, Nares patent, Normal nasal septum, Posterior pharynx clear, Pupils equal, Pupils reactive Neck: supple, trachea midline, +2 carotid pulse wo bruit Lungs: Clear to auscultation, Normal respiratory effort, Rales. No: Decreased breath sounds, Crackles, Rhonchi, Rub, Stridor, Wheezing Cardiovascular: regular rate, regular rhythm, normal S1, normal S2 Abdomen: normal bowel sounds, soft Back Exam: normal inspection, full range of motion, NT Extremities: 3, normal inspection, 10 Skin: warm, dry, intact Neurological: cranial nerves intact, strength equal bilateral, normal speech, normal tone, sensation intact. No: focal deficit Neuro Extensive - Mental Status: alert, oriented x3, normal mood/affect, normal cognition, memory intact - Patient Data Lab Results last 24 hrs: Laboratory Results - last 24 hr 03/22/17 03/22/17 Range/Units 14:10 14:10 WBC 31.1 H* (4.5-11.0) K/uL RBC 4.95 (4.30-5.90) M/uL Hgb 16.0 H (12.0-15.0) g/dL Hct 46.0 (40.0-54.0) % MCV 93 (80-98) fL MCH 32 H (27-31) pg MCHC 35 (32-36) % Plt Count 356 (150-400) K/uL Neut % (Auto) 92 H (36-66) % Lymph % (Auto) 5 L (24-44) % [place] % (Auto) 3 (2-6) % Eos % (Auto) 0 L (2-4) % Baso % (Auto) 0 (0-1) % Sodium 136 L (140-148) mmol/L Potassium 3.7 (3.6-5.2) mmol/L Chloride 100 (100-108) mmol/L Carbon Dioxide 27 (21-32) mmol/L Anion Gap 12.7 (5.0-14.0) mmol/L BUN 10 (7-18) mg/dL Creatinine 1.2 (0.8-1.3) mg/dL Est Cr Clr Drug Dosing 60.83 mL/min Estimated GFR (MDRD) > 60 (>60) Glucose 93 (74-106) mg/dL Calcium 8.4 L (8.5-10.1) mg/dL Result Diagrams: 03/22/17 14:10 03/22/17 14:10 *Q Meaningful Use (ADM) - VTE *Q VTE Criteria *Q: - VTE Risk Assess *Q Each Risk Factor Represents 1 Point: Serious Lung Disease Including Pneumonia, Less than 1 Month Total Score 1 Point Risk Factors: 1 Each Risk Factor Represents 2 Points: Age 60 - 74 Years Total Score 2 Point Risk Factors: 2 Each Risk Factor Represents 3 Points: None Total Score 3 Point Risk Factors: 0 Each Risk Factor Represents 5 Points: None Total Score 5 Point Risk Factors: 0 Venous Thromboembolism Risk Factor Score *Q: 3 - Stroke *Q Stroke Criteria *Q: - AMI *Q AMI Criteria *Q: Problem List Initiated/Reviewed/Updated: Yes Orders Last 24hrs: Active Orders 24 hr Category Date Time Status Patient Status Manage Transfer [TRANSFER] Routine ADT 03/22/17 15:13 Ordered Ang Chest [CT] Stat Exams 03/22/17 15:12 Ordered CULTURE BLOOD [BC] Urgent Lab 03/22/17 14:10 Received CULTURE BLOOD [BC] Urgent Lab 03/22/17 14:20 Received Blood Culture x2 Reflex Set [OM.PC] Urgent Oth 03/22/17 13:59 Ordered Resuscitation Status Routine Resus Stat 03/22/17 15:15 Ordered Assessment/Plan Comment:: ASSESSMENT AND [facility] PNEUMONIA-recent hospitalization for pneumonia , infiltrate noted left base on admission. Now has developed recurrent symptoms over the past 24 hours with significant temperature elevation and marked elevation in white blood cell count. Chest x-ray shows bilateral perihilar infiltrates. -Blood cultures pending -Sputum cultures ordered -CT scan of the chest with PE protocol -Broad-spectrum IV antibiotics, vancomycin, Zosyn, levofloxacin, pending culture results -IV fluids for hydration, reassess in a.m. HYPOXIA-secondary to current pneumonia -Supplemental oxygen as needed -Nebulized albuterol and duo nebs as needed ESOPHAGEAL REFLUX -Protonix 40 mg by mouth twice a day -Carafate 1 g by mouth 4 times a day MAINTENANCE ISSUES -DVT prophylaxis; Lovenox 40 mg subcutaneous daily -GI prophylaxis; Protonix as above -Martinez catheter; not indicated -Nutrition; regular diet -Nicotine dependence; not required CODE STATUS-FULL CODE ADMISSION STATUS-patient will be admitted to inpatient status, expect at least a 2 night hospital stay for evaluation and management of problems as outlined above. At the time of this admission I do not reasonably expected evaluation and management of this problem will require more than a 96 hour hospital stay. DISPOSITION-anticipate discharge to home after the hospital stay. PRIMARY CARE PROVIDER-Dr. Erickson
[2017-03-22] MEDS ORDERED: Iopamidol 755 Mg/ML 100 ML Bottle IV SCH (15:30)
[2017-03-22] MEDS ORDERED: Sodium Chloride 0.9% 100 ML IV SCH (15:30)
[2017-03-22] MEDS ORDERED: Sodium Chloride 0.9% 10 ML Syringe FLUSH PRN (15:58)
[2017-03-22] MEDS ORDERED: Polyethylene Glycol 3350 Powder 17 GM Packet PO PRN (15:58)
[2017-03-22] MEDS ORDERED: Ondansetron 4 MG/2 ML SDV IV PRN (15:58)
[2017-03-22] MEDS ORDERED: Magnesium Hydroxide 400 MG/5 ML Susp 30 ML Cup PO PRN (15:58)
[2017-03-22] MEDS ORDERED: Docusate Sodium 100 MG Cap PO PRN (15:58)
[2017-03-22] MEDS ORDERED: Acetaminophen 325 MG Tab PO PRN (15:58)
[2017-03-22] MEDS ORDERED: oxyCODONE 5 MG Tab PO PRN (15:58)
[2017-03-22] MEDS ORDERED: Albuterol 0.083% 2.5 MG/3 ML Neb Soln NEB PRN (15:58)
[2017-03-22] MEDS ORDERED: Vancomycin 1 GM SDV IV SCH (16:00)
[2017-03-22] MEDS ORDERED: Albuterol/Ipratropium 3.0-0.5 MG/3 ML Neb Soln NEB ONE (16:30)
[2017-03-22] MEDS: Piperacillin/Tazobactam/Dext 3.375 GM in Premix Bag 1 BAG IV SCH ×2 (17:05→22:33)
[2017-03-22] MEDS: Ibuprofen 600 MG Tab PO PRN (17:05)
[2017-03-22] MEDS: Sodium Chloride 0.9% 1,000 ML IV SCH (17:07)
[2017-03-22] MEDS: Enoxaparin 40 MG/0.4 ML Syringe SUBCUT SCH (17:58)
[2017-03-22] MEDS: Sucralfate Suspension 1 GM/10 ML Cup PO SCH ×2 (17:58→20:04)
[2017-03-22] MEDS: Pantoprazole 40 MG Tab.CR PO SCH (17:58)
[2017-03-22] MEDS ORDERED: Vancomycin 1.7 GM in Sodium Chloride 0.9% 250 ML IV ONE (18:00)
[2017-03-22] MEDS: Albuterol/Ipratropium 3.0-0.5 MG/3 ML Neb Soln NEB SCH (21:03)
[2017-03-22] MEDS: Melatonin 3 MG Tab PO SCH (21:06)
[2017-03-23] MEDS: Sodium Chloride 0.9% 1,000 ML IV SCH (02:52)
[2017-03-23] MEDS: Ibuprofen 600 MG Tab PO PRN ×2 (02:52→17:58)
[2017-03-23] MEDS: Piperacillin/Tazobactam/Dext 3.375 GM in Premix Bag 1 BAG IV SCH ×4 (04:43→22:48)
[2017-03-23] MEDS: Vancomycin 1.3 GM in Sodium Chloride 0.9% 250 ML IV SCH ×2 (06:05→17:58)
[2017-03-23] MEDS: Sucralfate Suspension 1 GM/10 ML Cup PO SCH ×4 (06:58→20:29)
[2017-03-23] MEDS: Pantoprazole 40 MG Tab.CR PO SCH ×2 (06:58→16:48)
[2017-03-23] MEDS: Albuterol/Ipratropium 3.0-0.5 MG/3 ML Neb Soln NEB SCH ×4 (07:20→20:36)
[2017-03-23] MEDS: Magnesium Oxide 400 MG Tab PO SCH ×2 (08:59→20:29)
[2017-03-23] MEDS: Aspirin 81 MG Tab.EC PO SCH (08:59)
[2017-03-23] MEDS ORDERED: Magnesium Sulfate/Water 2 GM in Premix Bag 1 BAG IV ONE ×2 (09:00→10:00)
[2017-03-23] MEDS ORDERED: Codeine/guaiFENesin 100mg-10 MG/5 ML Syrup 10 ML Cup PO PRN (10:02)
--- NOTE | 2017-03-23 10:07 | PCM.PN ---
- General Info Date of Service: 03/23/17 Functional Status: Reports: tolerating diet, urinating - Review of Systems General: Reports: Weakness. Denies: Fever, Chills Pulmonary: Reports: shortness of breath, cough, sputum. Denies: pleuritic chest pain, hemoptysis, wheezing Cardiovascular: Reports: Dyspnea on Exertion. Denies: Chest Pain, Palpitations , Orthopnea, PND, Edema Gastrointestinal: Reports: No symptoms Systems Review Comment:: This patient has improved mildly since admission yesterday, there've been no significant temperature elevations. Vital signs have been stable and he has remained afebrile. White blood cell count remains elevated but is improved from yesterday, he is also less short of breath with significant decrease in cough. - Patient Data Vitals - most recent: Last Vital Signs Temp 97.3 F 03/23/17 07:05 Pulse 58 L 03/23/17 07:05 Resp 20 03/23/17 07:05 BP 135/77 03/23/17 07:05 Pulse Ox 90 L 03/23/17 07:05 Weight - most recent: 187 lb 6.287 oz I&O - last 24 hours: Intake & Output 03/22/17 03/23/17 03/23/17 22:59 06:59 14:59 Intake Total 350 2031 50 Output Total 400 600 Balance -50 1431 50 Lab Results last 24 hrs: Laboratory Results - last 24 hr 03/22/17 03/23/17 03/23/17 Range/Units 16:44 04:26 04:26 WBC 17.3 H (4.5-11.0) K/uL RBC 4.02 L (4.30-5.90) M/uL Hgb 13.3 D (12.0-15.0) g/dL Hct 37.7 L (40.0-54.0) % MCV 94 (80-98) fL MCH 33 H (27-31) pg MCHC 35 (32-36) % Plt Count 295 (150-400) K/uL Neut % (Auto) 84 H (36-66) % Lymph % (Auto) 9 L (24-44) % [place] % (Auto) 4 (2-6) % Eos % (Auto) 3 (2-4) % Baso % (Auto) 0 (0-1) % Sodium 139 L (140-148) mmol/L Potassium 3.8 (3.6-5.2) mmol/L Chloride 103 (100-108) mmol/L Carbon Dioxide 28 (21-32) mmol/L Anion Gap 11.8 (5.0-14.0) mmol/L BUN 11 (7-18) mg/dL Creatinine 1.2 (0.8-1.3) mg/dL Est Cr Clr Drug Dosing 60.83 mL/min Estimated GFR (MDRD) > 60 (>60) Glucose 97 (74-106) mg/dL Calcium 7.6 L (8.5-10.1) mg/dL Magnesium 1.6 L (1.8-2.4) mg/dL Total Bilirubin 0.9 (0.2-1.0) mg/dL AST 20 (15-37) U/L ALT 36 (12-78) U/L Alkaline Phosphatase 112 (46-116) U/L Total Protein 5.8 L (6.4-8.2) g/dL Albumin 2.1 L (3.4-5.0) g/dL Globulin 3.7 H (2.3-3.5) g/dL Albumin/Globulin Ratio 0.6 L (1.2-2.2) Urine Color Yellow Urine Appearance Clear Urine pH 7.0 (4.5-8.0) Ur Specific [place] 1.010 (1.008-1.030) Urine Protein Negative (NEGATIVE) mg/dL Urine Glucose (UA) Normal (NEGATIVE) mg/dL Urine Ketones 15 H (NEGATIVE) mg/dL Urine Occult Blood Negative (NEGATIVE) Urine Nitrite Negative (NEGAITVE) Urine Bilirubin Negative (NEGATIVE) Urine Urobilinogen Normal (NORMAL) mg/dL Ur Leukocyte Esterase Negative (NEGATIVE) Urine RBC 0-5 (0-5) Urine WBC 0-5 (0-5) Ur Epithelial Cells Rare Amorphous Sediment Not seen Urine Bacteria Not seen Urine Mucus Not seen Maksim Results last 24 hrs: Microbiology 03/22/17 16:28 Gram Stain - Final Sputum - Expectorated Med Orders - Current: Current Medications Acetaminophen (Tylenol) 650 mg PO Q4H PRN PRN Reason: Pain (Mild 1-3)/fever Albuterol (Proventil Neb Soln) 2.5 mg NEB Q4H PRN PRN Reason: Shortness Of Breath/wheezing Albuterol/Ipratropium (Duoneb 3.0-0.5 Mg/3 Ml) 3 ml NEB QIDRT [facility] Last Admin: 03/23/17 07:20 Dose: 3 ml Aspirin (Halfprin) 81 mg PO DAILY [facility] Last Admin: 03/23/17 08:59 Dose: 81 mg Docusate Sodium (Colace) 100 mg PO BID PRN PRN Reason: Constipation Enoxaparin Sodium (Lovenox) 40 mg SUBCUT Q24H [facility] Last Admin: 03/22/17 17:58 Dose: 40 mg Guaifenesin/Codeine Phosphate (Robitussin Ac) 10 ml PO Q4H PRN PRN Reason: Cough Piperacillin/Tazobactam/ (Dextrose 3.375 gm/ Premix) 50 mls @ 100 mls/hr IV Q6H [facility] Last Admin: 03/23/17 04:43 Dose: 100 mls/hr Vancomycin HCl 1.3 gm/ Sodium (Chloride) 250 mls @ 167 mls/hr IV Q12H [facility] Last Admin: 03/23/17 06:05 Dose: 167 mls/hr Magnesium Sulfate 2 gm/ Premix 50 mls @ 25 mls/hr IV ONETIME ONE Stop: 03/23/17 10:59 Last Admin: 03/23/17 08:57 Dose: 25 mls/hr Ibuprofen (Motrin) 600 mg PO Q6H PRN PRN Reason: Pain/Fever Last Admin: 03/23/17 02:52 Dose: 600 mg Magnesium Hydroxide (Milk Of Magnesia) 30 ml PO Q12H PRN PRN Reason: Constipation Magnesium Oxide (Magnesium Oxide) 400 mg PO BID [facility] Last Admin: 03/23/17 08:59 Dose: 400 mg Melatonin (Melatonin) 9 mg PO BEDTIME [facility] Last Admin: 03/22/17 21:06 Dose: 9 mg Ondansetron HCl (Zofran) 4 mg IV Q4H PRN PRN Reason: Nausea/Vomiting Oxycodone HCl (Oxycodone) 5 mg PO Q4H PRN PRN Reason: Pain (moderate 4-6) Pantoprazole Sodium (Protonix) 40 mg PO BIDAC [facility] Last Admin: 03/23/17 06:58 Dose: 40 mg Polyethylene Glycol (Miralax) 17 gm PO DAILY PRN PRN Reason: Constipation Sodium Chloride (Saline Flush) 10 ml FLUSH ASDIRECTED PRN PRN Reason: Keep Vein Open Sucralfate (Carafate) 1 gm PO QIDACANDBED [facility] Last Admin: 03/23/17 06:58 Dose: 1 gm Discontinued Medications Albuterol/Ipratropium (Duoneb 3.0-0.5 Mg/3 Ml) 3 ml NEB ONETIME ONE Stop: 03/22/17 16:31 Last Admin: 03/22/17 17:58 Dose: 3 ml Sodium Chloride (Normal Saline) 100 mls @ 4 mls/sec IV ASDIRECTED [facility] Stop: 03/22/17 16:30 Last Admin: 03/22/17 15:34 Dose: 4 mls/sec Sodium Chloride (Normal Saline) 1,000 mls @ 125 mls/hr IV ASDIRECTED [facility] Last Admin: 03/23/17 02:52 Dose: 125 mls/hr Vancomycin HCl 1.7 gm/ Sodium (Chloride) 250 mls @ 125 mls/hr IV ONETIME ONE Stop: 03/22/17 19:59 Last Admin: 03/22/17 18:15 Dose: 125 mls/hr Magnesium Sulfate 2 gm/ Premix 50 mls @ 25 mls/hr IV ONETIME ONE Stop: 03/23/17 11:59 Iopamidol (Isovue-370 (76%)) 100 ml IV . DIRECTED [facility] Stop: 03/22/17 16:30 Last Admin: 03/22/17 15:34 Dose: 100 ml Vancomycin HCl (Vancomycin) 1 gm IV .PHARMACY TO DOSE [facility] Stop: 03/22/17 18:00 - Exam Quality Assessment: DVT prophylaxis General: alert, oriented, cooperative Lungs: Normal respiratory effort, Rales. No: Crackles, Rhonchi, Rub, Stridor, Wheezing Cardiovascular: Regular Rate, Regular Rhythm, No Murmurs Abdomen: bowel sounds present, soft, no tenderness, no distension Extremities: no edema Skin: warm, dry, intact - Problem List Review Problem List Initiated/Reviewed/Updated: Yes - My Orders Last 24 Hours: My Active Orders 03/22/17 15:15 Resuscitation Status Routine 03/22/17 15:58 Patient Status [ADT] Routine Intake and Output [RC] QSHIFT Notify Provider Vital Signs [RC] ASDIRECTED Oxygen Therapy [RC] PRN Peripheral IV Care [RC] . DIRECTED RT Aerosol Therapy [RC] ASDIRECTED Up ad [place] [RC] ASDIRECTED VTE/DVT Education [RC] Per Unit Routine Vital Signs [RC] Q4H Acetaminophen [Tylenol] 650 mg PO Q4H PRN Albuterol [Proventil Neb Soln] 2.5 mg NEB Q4H PRN Docusate Sodium [Colace] 100 mg PO BID PRN Ibuprofen [Motrin] 600 mg PO Q6H PRN Magnesium Hydroxide [Milk of Magnesia] 30 ml PO Q12H PRN Ondansetron [Zofran] 4 mg IV Q4H PRN Polyethylene Glycol 3350 [MiraLAX] 17 gm PO DAILY PRN Sodium Chloride 0.9% [Saline Flush] 10 ml FLUSH ASDIRECTED PRN oxyCODONE 5 mg PO Q4H PRN Peripheral IV Insertion Adult [OM.PC] Routine 03/22/17 16:28 CULTURE RESPIRATORY + SMEAR [RM] Stat 03/22/17 17:00 Enoxaparin [Lovenox] 40 mg SUBCUT Q24H Piperacillin/Tazobactam/Dext [Zosyn in Dextrose Iso-Osmotic 3.375 GM] 3.375 gm Premix Bag 1 bag IV Q6H 03/22/17 17:34 Incentive Spirometry [RT Incentive Spirometry] [RC] ASDIRECTED 03/22/17 17:35 RT Acapella [RESPCARE] Routine 03/22/17 21:00 Albuterol/Ipratropium [DuoNeb 3.0-0.5 MG/3 ML] 3 ml NEB QIDRT Melatonin 9 mg PO BEDTIME 03/22/17 Lunch Regular Diet [DIET] 03/23/17 06:00 Vancomycin 1.3 gm Sodium Chloride 0.9% [Normal Saline] 250 ml IV Q12H 03/23/17 09:00 Magnesium Oxide 400 mg PO BID Magnesium Sulfate/Water [Magnesium Sulfate 2 GM in Water 50 ML] 2 gm Premix Bag 1 bag IV ONETIME 03/23/17 10:02 Codeine/guaiFENesin [Robitussin AC] 10 ml PO Q4H PRN Convert IV to Saline Lock [OM.PC] Routine 03/24/17 05:00 BASIC METABOLIC PANEL,BMP [CHEM] Timed CBC WITH AUTO DIFF [HEME] Timed MAGNESIUM [CHEM] Timed 03/24/17 17:30 VANCOMYCIN TROUGH [CHEM] Routine - Plan Plan:: [facility] PNEUMONIA-recent hospitalization for pneumonia. Marked improvement since admission with less shortness of breath and cough. White count has improved and he is had only very mild temperature elevations. CT scan of the chest did show bilateral pulmonary infiltrates. -Blood cultures pending -Sputum cultures ordered -Broad-spectrum IV antibiotics, vancomycin, Zosyn, levofloxacin, pending culture results -Saline lock IV HYPOXIA-secondary to current pneumonia -Supplemental oxygen as needed -Nebulized albuterol and duo nebs as needed ESOPHAGEAL REFLUX -Protonix 40 mg by mouth twice a day -Carafate 1 g by mouth 4 times a day MAINTENANCE ISSUES -DVT prophylaxis; Lovenox 40 mg subcutaneous daily -GI prophylaxis; Protonix as above -Martinez catheter; not indicated -Nutrition; regular diet -Nicotine dependence; not required CODE STATUS-FULL CODE ADMISSION STATUS-patient will be admitted to inpatient status, expect at least a 2 night hospital stay for evaluation and management of problems as outlined above. At the time of this admission I do not reasonably expected evaluation and management of this problem will require more than a 96 hour hospital stay. DISPOSITION-anticipate discharge to home after the hospital stay. PRIMARY CARE PROVIDER-Dr. Erickson
[2017-03-23] MEDS: Enoxaparin 40 MG/0.4 ML Syringe SUBCUT SCH (16:48)
[2017-03-23] MEDS: Melatonin 3 MG Tab PO SCH (20:30)
[2017-03-24] MEDS: Piperacillin/Tazobactam/Dext 3.375 GM in Premix Bag 1 BAG IV SCH ×3 (05:30→17:06)
[2017-03-24] MEDS: Vancomycin 1.3 GM in Sodium Chloride 0.9% 250 ML IV SCH ×2 (06:06→18:26)
[2017-03-24] MEDS: Sucralfate Suspension 1 GM/10 ML Cup PO SCH ×4 (07:17→20:03)
[2017-03-24] MEDS: Albuterol/Ipratropium 3.0-0.5 MG/3 ML Neb Soln NEB SCH ×4 (07:19→20:09)
[2017-03-24] MEDS: Aspirin 81 MG Tab.EC PO SCH (08:18)
[2017-03-24] MEDS: Magnesium Oxide 400 MG Tab PO SCH ×2 (08:18→20:04)
[2017-03-24] MEDS: Pantoprazole 40 MG Tab.CR PO SCH ×2 (08:18→17:06)
--- NOTE | 2017-03-24 09:44 | PCM.PN ---
- General Info Date of Service: 03/24/17 Functional Status: Reports: tolerating diet, ambulating, urinating - Review of Systems General: Reports: Weakness. Denies: Fever, Chills Pulmonary: Reports: shortness of breath, cough. Denies: pleuritic chest pain, sputum, hemoptysis, wheezing Cardiovascular: Reports: Dyspnea on Exertion. Denies: Chest Pain, Palpitations , Orthopnea, PND, Edema, Lightheadedness Gastrointestinal: Reports: No symptoms Systems Review Comment:: This patient has felt well over the past 24 hours, there've been no recurrent temperature elevations of significance and shortness of breath has overall improved. He did have one episode of increased shortness of breath this morning but that's now resolved, cough has been better. Vital signs stable. - Patient Data Vitals - most recent: Last Vital Signs Temp 99.2 F 03/24/17 08:00 Pulse 68 03/24/17 08:00 Resp 16 03/24/17 08:00 BP 148/83 H 03/24/17 08:00 Pulse Ox 94 L 03/24/17 08:00 Weight - most recent: 189 lb I&O - last 24 hours: Intake & Output 03/23/17 03/24/17 03/24/17 22:59 06:59 14:59 Intake Total 800 300 650 Output Total 1500 Balance -700 300 650 Lab Results last 24 hrs: Laboratory Results - last 24 hr 03/24/17 03/24/17 Range/Units 04:45 04:45 WBC 13.8 H (4.5-11.0) K/uL RBC 4.10 L (4.30-5.90) M/uL Hgb 13.5 (12.0-15.0) g/dL Hct 38.3 L (40.0-54.0) % MCV 93 (80-98) fL MCH 33 H (27-31) pg MCHC 35 (32-36) % Plt Count 366 (150-400) K/uL Neut % (Auto) 79 H (36-66) % Lymph % (Auto) 9 L (24-44) % [place] % (Auto) 7 H (2-6) % Eos % (Auto) 5 H (2-4) % Baso % (Auto) 0 (0-1) % Sodium 142 (140-148) mmol/L Potassium 3.6 (3.6-5.2) mmol/L Chloride 105 (100-108) mmol/L Carbon Dioxide 29 (21-32) mmol/L Anion Gap 8.4 (5.0-14.0) mmol/L BUN 7 (7-18) mg/dL Creatinine 1.1 (0.8-1.3) mg/dL Est Cr Clr Drug Dosing 66.36 mL/min Estimated GFR (MDRD) > 60 (>60) Glucose 94 (74-106) mg/dL Calcium 7.9 L (8.5-10.1) mg/dL Magnesium 2.0 (1.8-2.4) mg/dL Maksim Results last 24 hrs: Microbiology 03/22/17 16:28 Gram Stain - Final Sputum - Expectorated Respiratory Culture - Preliminary Med Orders - Current: Current Medications Acetaminophen (Tylenol) 650 mg PO Q4H PRN PRN Reason: Pain (Mild 1-3)/fever Last Admin: 03/23/17 17:03 Dose: 650 mg Albuterol (Proventil Neb Soln) 2.5 mg NEB Q4H PRN PRN Reason: Shortness Of Breath/wheezing Albuterol/Ipratropium (Duoneb 3.0-0.5 Mg/3 Ml) 3 ml NEB QIDRT [facility] Last Admin: 03/24/17 07:19 Dose: 3 ml Aspirin (Halfprin) 81 mg PO DAILY [facility] Last Admin: 03/24/17 08:18 Dose: 81 mg Docusate Sodium (Colace) 100 mg PO BID PRN PRN Reason: Constipation Enoxaparin Sodium (Lovenox) 40 mg SUBCUT Q24H [facility] Last Admin: 03/23/17 16:48 Dose: 40 mg Guaifenesin/Codeine Phosphate (Robitussin Ac) 10 ml PO Q4H PRN PRN Reason: Cough Piperacillin/Tazobactam/ (Dextrose 3.375 gm/ Premix) 50 mls @ 100 mls/hr IV Q6H [facility] Last Admin: 03/24/17 05:30 Dose: 100 mls/hr Vancomycin HCl 1.3 gm/ Sodium (Chloride) 250 mls @ 167 mls/hr IV Q12H [facility] Last Admin: 03/24/17 06:06 Dose: 167 mls/hr Ibuprofen (Motrin) 600 mg PO Q6H PRN PRN Reason: Pain/Fever Last Admin: 03/23/17 17:58 Dose: 600 mg Magnesium Hydroxide (Milk Of Magnesia) 30 ml PO Q12H PRN PRN Reason: Constipation Magnesium Oxide (Magnesium Oxide) 400 mg PO BID [facility] Last Admin: 03/24/17 08:18 Dose: 400 mg Melatonin (Melatonin) 9 mg PO BEDTIME [facility] Last Admin: 03/23/17 20:30 Dose: 9 mg Ondansetron HCl (Zofran) 4 mg IV Q4H PRN PRN Reason: Nausea/Vomiting Oxycodone HCl (Oxycodone) 5 mg PO Q4H PRN PRN Reason: Pain (moderate 4-6) Pantoprazole Sodium (Protonix) 40 mg PO BIDAC [facility] Last Admin: 03/24/17 08:18 Dose: 40 mg Polyethylene Glycol (Miralax) 17 gm PO DAILY PRN PRN Reason: Constipation Sodium Chloride (Saline Flush) 10 ml FLUSH ASDIRECTED PRN PRN Reason: Keep Vein Open Sucralfate (Carafate) 1 gm PO QIDACANDBED [facility] Last Admin: 03/24/17 07:17 Dose: 1 gm Discontinued Medications Albuterol/Ipratropium (Duoneb 3.0-0.5 Mg/3 Ml) 3 ml NEB ONETIME ONE Stop: 03/22/17 16:31 Last Admin: 03/22/17 17:58 Dose: 3 ml Sodium Chloride (Normal Saline) 100 mls @ 4 mls/sec IV ASDIRECTED [facility] Stop: 03/22/17 16:30 Last Admin: 03/22/17 15:34 Dose: 4 mls/sec Sodium Chloride (Normal Saline) 1,000 mls @ 125 mls/hr IV ASDIRECTED [facility] Last Admin: 03/23/17 02:52 Dose: 125 mls/hr Vancomycin HCl 1.7 gm/ Sodium (Chloride) 250 mls @ 125 mls/hr IV ONETIME ONE Stop: 03/22/17 19:59 Last Admin: 03/22/17 18:15 Dose: 125 mls/hr Magnesium Sulfate 2 gm/ Premix 50 mls @ 25 mls/hr IV ONETIME ONE Stop: 03/23/17 11:59 Magnesium Sulfate 2 gm/ Premix 50 mls @ 25 mls/hr IV ONETIME ONE Stop: 03/23/17 10:59 Last Admin: 03/23/17 08:57 Dose: 25 mls/hr Iopamidol (Isovue-370 (76%)) 100 ml IV . DIRECTED [facility] Stop: 03/22/17 16:30 Last Admin: 03/22/17 15:34 Dose: 100 ml Vancomycin HCl (Vancomycin) 1 gm IV .PHARMACY TO DOSE [facility] Stop: 03/22/17 18:00 - Exam Quality Assessment: supplemental oxygen, DVT prophylaxis General: alert, oriented, cooperative, mild distress Lungs: Clear to auscultation, Normal respiratory effort, Rales. No: Rhonchi, Rub, Stridor, Wheezing Cardiovascular: Regular Rate, Regular Rhythm, No Murmurs Abdomen: bowel sounds present, soft, no tenderness, no distension Extremities: no edema Skin: warm, dry, intact - Problem List Review Problem List Initiated/Reviewed/Updated: Yes - My Orders Last 24 Hours: My Active Orders 03/23/17 09:00 Magnesium Oxide 400 mg PO BID 03/23/17 10:02 Codeine/guaiFENesin [Robitussin AC] 10 ml PO Q4H PRN Convert IV to Saline Lock [OM.PC] Routine 03/25/17 05:00 BASIC METABOLIC PANEL,BMP [CHEM] Timed CBC WITH AUTO DIFF [HEME] Timed MAGNESIUM [CHEM] Timed 03/25/17 05:30 VANCOMYCIN TROUGH [CHEM] Timed - Plan Plan:: [facility]ESS[facility] PNEUMONIA-recent hospitalization for pneumonia. Are there improvement over the past 24 hours with less shortness of breath and cough. White blood cell count has come down further but is not yet within normal range, only low-grade temperature elevations in the past 24 hours. Sputum culture is showing some growth, ID and sensitivities pending -Blood cultures pending -Sputum cultures ordered -Broad-spectrum IV antibiotics, vancomycin, Zosyn, levofloxacin, pending culture results -Saline lock IV HYPOXIA-secondary to current pneumonia, improved from admission. -Supplemental oxygen as needed -Nebulized albuterol and duo nebs as needed ESOPHAGEAL REFLUX -Protonix 40 mg by mouth twice a day -Carafate 1 g by mouth 4 times a day MAINTENANCE ISSUES -DVT prophylaxis; Lovenox 40 mg subcutaneous daily -GI prophylaxis; Protonix as above -Martinez catheter; not indicated -Nutrition; regular diet -Nicotine dependence; not required CODE STATUS-FULL CODE ADMISSION STATUS-patient will be admitted to inpatient status, expect at least a 2 night hospital stay for evaluation and management of problems as outlined above. At the time of this admission I do not reasonably expected evaluation and management of this problem will require more than a 96 hour hospital stay. DISPOSITION-anticipate discharge to home after the hospital stay. PRIMARY CARE PROVIDER-Dr. Erickson
[2017-03-24] MEDS: Lactobacillus Rhamnosus GG (Probiotic) Cap PO SCH ×2 (12:29→20:05)
[2017-03-24] MEDS: Enoxaparin 40 MG/0.4 ML Syringe SUBCUT SCH (17:06)
[2017-03-24] MEDS: Melatonin 3 MG Tab PO SCH (20:04)
[2017-03-25] MEDS: Piperacillin/Tazobactam/Dext 3.375 GM in Premix Bag 1 BAG IV SCH ×5 (00:01→22:03)
[2017-03-25] MEDS: Vancomycin 1.3 GM in Sodium Chloride 0.9% 250 ML IV SCH (06:24)
[2017-03-25] MEDS: Albuterol/Ipratropium 3.0-0.5 MG/3 ML Neb Soln NEB SCH ×4 (07:16→20:20)
[2017-03-25] MEDS: Lactobacillus Rhamnosus GG (Probiotic) Cap PO SCH ×2 (08:07→20:20)
[2017-03-25] MEDS: Magnesium Oxide 400 MG Tab PO SCH ×2 (08:07→20:22)
[2017-03-25] MEDS: Aspirin 81 MG Tab.EC PO SCH (08:07)
[2017-03-25] MEDS: Pantoprazole 40 MG Tab.CR PO SCH ×2 (08:54→16:01)
[2017-03-25] MEDS: Sucralfate Suspension 1 GM/10 ML Cup PO SCH ×4 (08:54→20:20)
--- NOTE | 2017-03-25 12:00 | PCM.PN ---
- General Info Date of Service: 03/25/17 Functional Status: Reports: pain controlled, tolerating diet, ambulating - Review of Systems General: Reports: Fever Pulmonary: Reports: shortness of breath, cough Gastrointestinal: Denies: Diarrhea Systems Review Comment:: No acute events overnight. Clinically he is feeling better with less cough and shortness of breath. He did have a fever to 101 last night. No complaints of chest pain. Appetite is normal. No abdominal pain or diarrhea today. Cultures have all been negative. Tolerating current antibiotics. - Patient Data Vitals - most recent: Last Vital Signs Temp 37.4 C 03/25/17 11:16 Pulse 63 03/25/17 11:16 Resp 20 03/25/17 11:16 BP 168/87 H 03/25/17 11:16 Pulse Ox 91 L 03/25/17 11:16 Weight - most recent: 84.368 kg I&O - last 24 hours: Intake & Output 03/24/17 03/25/17 03/25/17 22:59 06:59 14:59 Intake Total 500 950 Output Total 800 750 Balance -300 200 Lab Results last 24 hrs: Laboratory Results - last 24 hr 03/25/17 03/25/17 03/25/17 Range/Units 05:44 05:44 05:44 WBC 13.4 H (4.5-11.0) K/uL RBC 4.12 L (4.30-5.90) M/uL Hgb 13.6 (12.0-15.0) g/dL Hct 38.4 L (40.0-54.0) % MCV 93 (80-98) fL MCH 33 H (27-31) pg MCHC 35 (32-36) % Plt Count 418 H (150-400) K/uL Neut % (Auto) 76 H (36-66) % Lymph % (Auto) 13 L (24-44) % [place] % (Auto) 7 H (2-6) % Eos % (Auto) 4 (2-4) % Baso % (Auto) 1 (0-1) % Sodium 140 (140-148) mmol/L Potassium 3.6 (3.6-5.2) mmol/L Chloride 104 (100-108) mmol/L Carbon Dioxide 26 (21-32) mmol/L Anion Gap 9.6 (5.0-14.0) mmol/L BUN 5 L (7-18) mg/dL Creatinine 1.1 (0.8-1.3) mg/dL Est Cr Clr Drug Dosing 66.36 mL/min Estimated GFR (MDRD) > 60 (>60) Glucose 93 (74-106) mg/dL Calcium 8.0 L (8.5-10.1) mg/dL Magnesium 1.8 (1.8-2.4) mg/dL Vancomycin Trough 10.6 (10.0-20.0) ug/mL Maksim Results last 24 hrs: Microbiology 03/22/17 16:28 Gram Stain - Final Sputum - Expectorated Respiratory Culture - Final NORMAL RESPIRATORY DESTIN 2 DAYS 03/24/17 12:21 Clostridium difficile (PCR) - Final Stool / Feces NEGATIVE CDIFF TOXIN Med Orders - Current: Current Medications Acetaminophen (Tylenol) 650 mg PO Q4H PRN PRN Reason: Pain (Mild 1-3)/fever Last Admin: 03/23/17 17:03 Dose: 650 mg Albuterol (Proventil Neb Soln) 2.5 mg NEB Q4H PRN PRN Reason: Shortness Of Breath/wheezing Albuterol/Ipratropium (Duoneb 3.0-0.5 Mg/3 Ml) 3 ml NEB QIDRT [facility] Last Admin: 03/25/17 10:44 Dose: 3 ml Aspirin (Halfprin) 81 mg PO DAILY [facility] Last Admin: 03/25/17 08:07 Dose: 81 mg Docusate Sodium (Colace) 100 mg PO BID PRN PRN Reason: Constipation Enoxaparin Sodium (Lovenox) 40 mg SUBCUT Q24H [facility] Last Admin: 03/24/17 17:06 Dose: 40 mg Guaifenesin/Codeine Phosphate (Robitussin Ac) 10 ml PO Q4H PRN PRN Reason: Cough Piperacillin/Tazobactam/ (Dextrose 3.375 gm/ Premix) 50 mls @ 100 mls/hr IV Q6H [facility] Last Admin: 03/25/17 11:39 Dose: 100 mls/hr Ibuprofen (Motrin) 600 mg PO Q6H PRN PRN Reason: Pain/Fever Last Admin: 03/23/17 17:58 Dose: 600 mg Lactobacillus Rhamnosus (Culturelle) 2 cap PO BID [facility] Last Admin: 03/25/17 08:07 Dose: 2 cap Magnesium Hydroxide (Milk Of Magnesia) 30 ml PO Q12H PRN PRN Reason: Constipation Magnesium Oxide (Magnesium Oxide) 400 mg PO BID [facility] Last Admin: 03/25/17 08:07 Dose: 400 mg Melatonin (Melatonin) 9 mg PO BEDTIME [facility] Last Admin: 03/24/17 20:04 Dose: 9 mg Ondansetron HCl (Zofran) 4 mg IV Q4H PRN PRN Reason: Nausea/Vomiting Oxycodone HCl (Oxycodone) 5 mg PO Q4H PRN PRN Reason: Pain (moderate 4-6) Pantoprazole Sodium (Protonix) 40 mg PO BIDAC [facility] Last Admin: 03/25/17 08:54 Dose: 40 mg Polyethylene Glycol (Miralax) 17 gm PO DAILY PRN PRN Reason: Constipation Sodium Chloride (Saline Flush) 10 ml FLUSH ASDIRECTED PRN PRN Reason: Keep Vein Open Sucralfate (Carafate) 1 gm PO QIDACANDBED [facility] Last Admin: 03/25/17 11:39 Dose: 1 gm Discontinued Medications Albuterol/Ipratropium (Duoneb 3.0-0.5 Mg/3 Ml) 3 ml NEB ONETIME ONE Stop: 03/22/17 16:31 Last Admin: 03/22/17 17:58 Dose: 3 ml Sodium Chloride (Normal Saline) 100 mls @ 4 [facility]ls[facility] Stop: 03/22/17 16:30 Last Admin: 03/22/17 15:34 Dose: 4 mls/sec Sodium Chloride (Normal Saline) 1,000 mls @ 125 mls/hr IV ASDIRECTED [facility] Last Admin: 03/23/17 02:52 Dose: 125 mls/hr Vancomycin HCl 1.7 gm/ Sodium (Chloride) 250 mls @ 125 mls/hr IV ONETIME ONE Stop: 03/22/17 19:59 Last Admin: 03/22/17 18:15 Dose: 125 mls/hr Vancomycin HCl 1.3 gm/ Sodium (Chloride) 250 mls @ 167 mls/hr IV Q12H [facility] Last Admin: 03/25/17 06:24 Dose: 167 mls/hr Magnesium Sulfate 2 gm/ Premix 50 mls @ 25 mls/hr IV ONETIME ONE Stop: 03/23/17 11:59 Magnesium Sulfate 2 gm/ Premix 50 mls @ 25 mls/hr IV ONETIME ONE Stop: 03/23/17 10:59 Last Admin: 03/23/17 08:57 Dose: 25 mls/hr Iopamidol (Isovue-370 (76%)) 100 ml IV . DIRECTED [facility] Stop: 03/22/17 16:30 Last Admin: 03/22/17 15:34 Dose: 100 ml Vancomycin HCl (Vancomycin) 1 gm IV .PHARMACY TO DOSE [facility] Stop: 03/22/17 18:00 - Exam Quality Assessment: No: supplemental oxygen General: alert, oriented, cooperative, no acute distress Neck: supple Lungs: Rales (both bases). No: Wheezing Cardiovascular: Regular Rate, Regular Rhythm Abdomen: soft, no distension Extremities: no edema, no cyanosis, other (mild redness and warmth medial right great toe) Skin: warm, dry Psy/Mental Status: alert, normal affect - Problem List Review Problem List Initiated/Reviewed/Updated: Yes - My Orders Last 24 Hours: My Active Orders 03/26/17 05:00 CBC W/O DIFF,HEMOGRAM [HEME] Timed (1) - Plan Plan:: ASSESSMENT AND PLAN [facility] PNEUMONIA - recent hospitalization for pneumonia. Clinically improving, white blood cell count stable but not yet normal. Cultures are negative so far. -Followup cultures -Discontinue vancomycin with no MRSA -Continue levofloxacin and Pip/Tazo this plan to discharge with levofloxacin, -Saline lock IV HYPOXIA -s econdary to current pneumonia, now resolved -Supplemental oxygen as needed -Nebulized albuterol and duo nebs as needed ESOPHAGEAL REFLUX -Protonix 40 mg by mouth twice a day -Carafate 1 g by mouth 4 times a day MAINTENANCE ISSUES -DVT prophylaxis; Lovenox 40 mg subcutaneous daily -GI prophylaxis; Protonix as above -Martinez catheter; not indicated -Nutrition; regular diet DISPOSITION-anticipate discharge to home after the hospital stay, probably in the next day or 2 Barrett Ybarra M.D.
[2017-03-25] MEDS ORDERED: predniSONE 20 MG Tab PO ONE (13:00)
[2017-03-25] MEDS: Enoxaparin 40 MG/0.4 ML Syringe SUBCUT SCH (16:02)
[2017-03-25] MEDS: Melatonin 3 MG Tab PO SCH (20:21)
[2017-03-25] MEDS ORDERED: Benzonatate 100 MG Cap PO PRN (21:45)
[2017-03-25] MEDS: Ibuprofen 600 MG Tab PO PRN (23:00)
[2017-03-26] MEDS: Piperacillin/Tazobactam/Dext 3.375 GM in Premix Bag 1 BAG IV SCH ×2 (04:05→11:10)
[2017-03-26] MEDS: Albuterol/Ipratropium 3.0-0.5 MG/3 ML Neb Soln NEB SCH ×2 (07:21→10:54)
[2017-03-26] MEDS ORDERED: predniSONE 20 MG Tab PO SCH (08:00)
[2017-03-26] MEDS: Pantoprazole 40 MG Tab.CR PO SCH (08:16)
[2017-03-26] MEDS: Magnesium Oxide 400 MG Tab PO SCH (08:16)
[2017-03-26] MEDS: Aspirin 81 MG Tab.EC PO SCH (08:16)
[2017-03-26] MEDS: Lactobacillus Rhamnosus GG (Probiotic) Cap PO SCH (08:16)
[2017-03-26] MEDS: Sucralfate Suspension 1 GM/10 ML Cup PO SCH ×2 (08:16→11:10)
--- NOTE | 2017-03-26 10:17 | PCM.DCSUM1 ---
Discharge Summary - Hospital Course Brief History: 59-year-old male with history of esophageal reflux disease and recent admission for left lung pneumonia and large gastric ulceration who presented with high fever, worsening shortness of breath and cough today of discharge. He was admitted for management of bilateral, possibly healthcare acquired pneumonia. - Discharge Data Discharge Date: 03/26/17 Discharge Disposition: Home, Self-Care 01 Condition: Good - Discharge Diagnosis/Problem(s) (1) Pneumonia SNOMED Code(s): 064525355 ICD Code: J18.9 - PNEUMONIA, UNSPECIFIED ORGANISM Status: Acute Qualifiers: Pneumonia type: due to unspecified organism Laterality: bilateral Lung location: upper lobe of lung Qualified Code(s): J18.9 - Pneumonia, unspecified organism (2) GERD (gastroesophageal reflux disease) SNOMED Code(s): 680608776 ICD Code: K21.9 - GASTRO-ESOPHAGEAL REFLUX DISEASE WITHOUT ESOPHAGITIS Status: Chronic Qualifiers: Esophagitis presence: without esophagitis Qualified Code(s): K21.9 - Gastro -esophageal reflux disease without esophagitis - Patient Summary/Data Hospital Course: Nikos presented to the emergency room only a matter of hours after the hospital discharge. Symptoms that prompted a return visit included a very high fever as well as increasing cough and shortness of breath. Workup in the emergency room was suggestive of a progression of his pneumonia including bilateral infiltrates noted on CT scan. He was admitted to the hospital and started on route spectrum antibiotics. White blood cell count was very elevated at more than 30,000 when he presented to the hospital. Repeat cultures were obtained at the time of presentation. Over the next couple of days he showed a fairly impressive clinical improvement with decreasing supplemental oxygen requirement and lessening of his symptoms. His white blood cell count trended down and his fever curve did slowly improve over the course of 3 days. Clinically he showed significant improvement with decreasing shortness of breath and improving functional status. His appetite is improved. Physical examination has improved each day. He is no longer dependent on supplemental oxygen. We have been able to de-escalate antibiotics. Cultures have all been negative. He did have diarrhea during the early part of the hospital stay but his C. difficile was negative. Diarrhea has resolved with the use of probiotics. At this point I believe he is safe for hospital discharge and outpatient management. The plan is for him to continue levofloxacin at home for 4 additional days. He does not think that he will need cough suppressants. He will be continuing his probiotics. He has not been hypoxic and does not require home oxygen. Also encountered during hospital stay with some redness, Swelling and warmth of his right great toe. Gout was suspected and he was started on prednisone. He had significant improvement within 24 hours. He will need one more dose of prednisone after hospital discharge. - Patient Instructions Diet: Regular Diet as Tolerated Activity: As Tolerated Driving: May Drive Today Showering/Bathing: May Shower Notify Provider of: Fever, Increased Pain, Nausea and/or Vomiting Other/Special Instructions: 1. You were in the hospital for management of a bilateral pneumonia. We did not determine the cause of bacteria with our cultures. You have improved with the antibiotics that we administered during the hospital stay. I would recommend for additional days of antibiotic therapy with levofloxacin. You will take this once daily at suppertime. If you have difficulty with cough you and can use [id number] medications such as Robitussin or Delsym. I would recommend that you take probiotics twice daily for at least a week after you have completed your antibiotic therapy. 2. For your esophageal reflux disease I would recommend taking your proton pump inhibitor ( omeprazole or Prilosec ) twice daily for the next month and then once daily thereafter. If you are symptom-free after 2-3 months you could consider decreasing to every other day or every third day. I would recommend that you take the Carafate 3-4 times daily for the next 2 weeks. You may discontinue the medication at that point. 3. You had a flare of gout in your right great toe. You have had 2 doses of prednisone and will need one more dose tomorrow morning. 4. Please seek medical attention if you develop fever greater than 101, worsening cough or shortness of breath or you develop severe chest pain. - Discharge Plan Prescriptions/Med Rec: Levofloxacin 750 mg PO QPM #4 tablet Prednisone [IJD: predniSONE] 20 mg PO WITHBREAKFAST #1 tablet Home Medications: Home Meds Aspirin [Low Dose Aspirin EC] 81 mg PO DAILY 07/20/14 [History] Pantoprazole [ProTONIX] 40 mg PO BIDAC #30 tab.cr 03/21/17 [Rx] Sucralfate [Carafate] 1 gm PO QIDACANDBED #120 cup 03/21/17 [Rx] Levofloxacin 750 mg PO QPM #4 tablet 03/26/17 [Rx] Prednisone [IJD: predniSONE] 20 mg PO WITHBREAKFAST #1 tablet 03/26/17 [Rx] Patient Handouts: Levofloxacin tablets, Gastroesophageal Reflux Disease, Adult Forms: ED Department Discharge Referrals: Raffy Erickson MD [Primary Care Provider] - (in followup next week if symptoms do not continued to improve or they get worse) - Discharge Summary/Plan Comment DC Time >30 min.: No (25) - Patient Data Vitals - Most Recent: Last Vital Signs Temp 36.4 C 03/26/17 07:00 Pulse 64 03/26/17 07:22 Resp 18 03/26/17 07:00 BP 146/93 H 03/26/17 07:00 Pulse Ox 92 L 03/26/17 07:00 Weight - Most Recent: 84.368 kg I&O - Last 24 hours: Intake & Output 03/25/17 03/26/17 03/26/17 22:59 06:59 14:59 Intake Total 50 620 360 Balance 50 620 360 Lab Results - Last 24 hrs: Laboratory Results - last 24 hr 03/26/17 Range/Units 05:00 WBC 11.3 H (4.5-11.0) K/uL RBC 4.08 L (4.30-5.90) M/uL Hgb 13.2 (12.0-15.0) g/dL Hct 38.4 L (40.0-54.0) % MCV 94 (80-98) fL MCH 32 H (27-31) pg MCHC 34 (32-36) % Plt Count 442 H (150-400) K/uL SLOAN Results - Last 24 hrs: Microbiology 03/22/17 16:28 Gram Stain - Final Sputum - Expectorated Respiratory Culture - Final NORMAL RESPIRATORY DESTIN 2 DAYS Med Orders - Current: Current Medications Acetaminophen (Tylenol) 650 mg PO Q4H PRN PRN Reason: Pain (Mild 1-3)/fever Last Admin: 03/23/17 17:03 Dose: 650 mg Albuterol (Proventil Neb Soln) 2.5 mg NEB Q4H PRN PRN Reason: Shortness Of Breath/wheezing Albuterol/Ipratropium (Duoneb 3.0-0.5 Mg/3 Ml) 3 ml NEB QIDRT [facility] Last Admin: 03/26/17 07:21 Dose: 3 ml Aspirin (Halfprin) 81 mg PO DAILY [facility] Last Admin: 03/26/17 08:16 Dose: 81 mg Benzonatate (Tessalon Perles) 200 mg PO TID PRN PRN Reason: Cough Last Admin: 03/25/17 22:03 Dose: 200 mg Docusate Sodium (Colace) 100 mg PO BID PRN PRN Reason: Constipation Enoxaparin Sodium (Lovenox) 40 mg SUBCUT Q24H [facility] Last Admin: 03/25/17 16:02 Dose: 40 mg Guaifenesin/Codeine Phosphate (Robitussin Ac) 10 ml PO Q4H PRN PRN Reason: Cough Last Admin: 03/25/17 16:21 Dose: 10 ml Piperacillin/Tazobactam/ (Dextrose 3.375 gm/ Premix) 50 mls @ 100 mls/hr IV Q6H [facility] Last Admin: 03/26/17 04:05 Dose: 100 mls/hr Ibuprofen (Motrin) 600 mg PO Q6H PRN PRN Reason: Pain/Fever Last Admin: 03/25/17 23:00 Dose: 600 mg Lactobacillus Rhamnosus (Culturelle) 2 cap PO BID [facility] Last Admin: 03/26/17 08:16 Dose: 2 cap Magnesium Hydroxide (Milk Of Magnesia) 30 ml PO Q12H PRN PRN Reason: Constipation Magnesium Oxide (Magnesium Oxide) 400 mg PO BID [facility] Last Admin: 03/26/17 08:16 Dose: 400 mg Melatonin (Melatonin) 9 mg PO BEDTIME [facility] Last Admin: 03/25/17 20:21 Dose: 9 mg Ondansetron HCl (Zofran) 4 mg IV Q4H PRN PRN Reason: Nausea/Vomiting Oxycodone HCl (Oxycodone) 5 mg PO Q4H PRN PRN Reason: Pain (moderate 4-6) Pantoprazole Sodium (Protonix) 40 mg PO BIDAC [facility] Last Admin: 03/26/17 08:16 Dose: 40 mg Polyethylene Glycol (Miralax) 17 gm PO DAILY PRN PRN Reason: Constipation Prednisone (Prednisone) 20 mg PO WITHBREAKFAST [facility] Stop: 03/27/17 08:01 Last Admin: 03/26/17 08:16 Dose: 20 mg Sodium Chloride (Saline Flush) 10 ml FLUSH ASDIRECTED PRN PRN Reason: Keep Vein Open Sucralfate (Carafate) 1 gm PO QIDACANDBED [facility] Last Admin: 03/26/17 08:16 Dose: 1 gm Discontinued Medications Albuterol/Ipratropium (Duoneb 3.0-0.5 Mg/3 Ml) 3 ml NEB ONETIME ONE Stop: 03/22/17 16:31 Last Admin: 03/22/17 17:58 Dose: 3 ml Sodium Chloride (Normal Saline) 100 mls @ 4 mls/sec IV ASDIRECTED [facility] Stop: 03/22/17 16:30 Last Admin: 03/22/17 15:34 Dose: 4 mls/sec Sodium Chloride (Normal Saline) 1,000 mls @ 125 mls/hr IV ASDIRECTED [facility] Last Admin: 03/23/17 02:52 Dose: 125 mls/hr Vancomycin HCl 1.7 gm/ Sodium (Chloride) 250 mls @ 125 mls/hr IV ONETIME ONE Stop: 03/22/17 19:59 Last Admin: 03/22/17 18:15 Dose: 125 mls/hr Vancomycin HCl 1.3 gm/ Sodium (Chloride) 250 mls @ 167 mls/hr IV Q12H [facility] Last Admin: 03/25/17 06:24 Dose: 167 mls/hr Magnesium Sulfate 2 gm/ Premix 50 mls @ 25 mls/hr IV ONETIME ONE Stop: 03/23/17 11:59 Magnesium Sulfate 2 gm/ Premix 50 mls @ 25 mls/hr IV ONETIME ONE Stop: 03/23/17 10:59 Last Admin: 03/23/17 08:57 Dose: 25 mls/hr Iopamidol (Isovue-370 (76%)) 100 ml IV . DIRECTED [facility] Stop: 03/22/17 16:30 Last Admin: 03/22/17 15:34 Dose: 100 ml Prednisone (Prednisone) 20 mg PO ONETIME ONE Stop: 03/25/17 13:01 Last Admin: 03/25/17 13:59 Dose: 20 mg Vancomycin HCl (Vancomycin) 1 gm IV .PHARMACY TO DOSE [facility] Stop: 03/22/17 18:00 *Q Meaningful Use (DIS) - VTE *Q VTE Criteria *Q: - Stroke *Q Stroke Criteria *Q: - AMI *Q AMI Criteria *Q:
[2017-03-26 10:39] VITALS: BP 151/90
== END 2017-03-26 11:10 | disposition home or self-care (01) | DRG 195 ==
LOC: JP.ED 12:20 → JP.MS 15:13
PROVIDERS: ADMIT Hospitalist; ATTEND Internal Medicine
DX: J18.9 Pneumonia, unspecified organism (principal); R09.02 Hypoxemia; Y95 Nosocomial condition; K21.9 Gastro-esophageal reflux disease without esophagitis; M10.9 Gout, unspecified; Z87.01 Personal history of pneumonia (recurrent); E78.00 Pure hypercholesterolemia, unspecified; H54.7 Unspecified visual loss; Z79.82 Long term (current) use of aspirin; Z79.52 Long term (current) use of systemic steroids; R19.7 Diarrhea, unspecified
CPT/HCPCS: 36415; 71020; 71020-26; 71275; 80048; 80053; 80202; 81001; 83735; 85025; 85027; 87040; 87070; 87205; 87493; 94640-76; 94667; 96360; 99284; 99285-25; A9270-GY; J1650; J2543; J3370; J3475; J7030; J7040; J7050; J7620; Q9967

== ENCOUNTER 2018-04-15 08:18 | Emergency (ER) | payer MEDICARE, BC ==
[2018-04-15 08:32] VITALS: BP 144/83
--- NOTE | 2018-04-15 08:57 | EDM.PDOC ---
ED HPI GENERAL MEDICAL PROBLEM - General Chief Complaint: General Stated Complaint: DIZZINESS NAUSA Time Seen by Provider: 04/15/18 08:55 Source of Information: Reports: Patient History Limitations: Reports: No Limitations - History of Present Illness INITIAL COMMENTS - FREE TEXT/NARRATIVE: pt arrived with a history of getting up this am and feeling like he was going to pass out. 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 Onset: Today, Sudden, Other (He definitely felt like he was gouing to pass out. ) Duration: Hour(s):, Other (Pt had no pain. ) Location: Reports: Head, Other (Pt nearly passed out. ) Associated Symptoms: Reports: Weakness, Other (near syncope) - Related Data Allergies Allergy/AdvReac Type Severity Reaction Status Date / Time No Known Allergies Allergy Verified 03/22/17 13:07 Home Meds: Home Meds NK [No Known Home Meds] 04/15/18 [History] Past Medical History HEENT History: Reports: Cataract, Impaired Vision, Otitis Media Cardiovascular History: Reports: High Cholesterol, Hypertension, Other (See Below) Other Cardiovascular History: "[place] is watching left carotid artery" Respiratory History: Reports: Pneumonia, Recurrent Other Respiratory History: pneumonia x2 Gastrointestinal History: Reports: Diverticulosis, GERD Musculoskeletal History: Reports: Other (See Below) Other Musculoskeletal History: ankle - Infectious Disease History Infectious Disease History: Reports: Chicken Pox, Measles, Mumps - Past Surgical History HEENT Surgical History: Reports: Cataract Surgery, Oral Surgery, Other (See Below) GI Surgical History: Reports: Cholecystectomy, Colonoscopy Musculoskeletal Surgical History: Reports: Arthroscopic Knee, Other (See Below) Social & Family History - Family History Family Medical History: Noncontributory GI: Reports: Cirrhosis, GERD - Tobacco Use Smoking Status *Q: Never Smoker - Caffeine Use Caffeine Use: Reports: None - Recreational Drug Use Recreational Drug Use: No ED ROS GENERAL - Review of Systems Review Of Systems: See Below Constitutional: Reports: Chills, Weakness, Other (nausea) HEENT: Reports: No Symptoms Respiratory: Reports: No Symptoms Cardiovascular: Reports: No Symptoms Endocrine: Reports: No Symptoms, Fatigue GI/Abdominal: Reports: Nausea : Reports: No Symptoms Musculoskeletal: Reports: No Symptoms Skin: Reports: No Symptoms Neurological: Reports: Dizziness Psychiatric: Reports: No Symptoms Hematologic/Lymphatic: Reports: No Symptoms ED EXAM, GENERAL - Physical Exam Exam: See Below Free Text/Narrative:: pt arrived with an episode when he first got up where he felt like he was going to pass out. Exam Limited By: No Limitations General Appearance: Alert, Anxious, Mild Distress, Other (pupils are equal and reactive. ) Ears: Normal TMs Nose: Normal Inspection Throat/Mouth: Normal Inspection Head: Atraumatic Neck: Normal Inspection Respiratory/Chest: No Respiratory Distress Cardiovascular: Regular Rate, Rhythm GI/Abdominal: Soft, Non-Tender (Male) Exam: Deferred Rectal (Males) Exam: Deferred Back Exam: Normal Inspection Extremities: Normal Inspection Neurological: Alert, Oriented, Normal Cognition Psychiatric: Normal Affect Course - Vital Signs Last Recorded V/S: Last Vital Signs Temp 34.8 C L 04/15/18 08:34 Pulse 50 L 04/15/18 08:34 Resp 18 04/15/18 08:34 BP 144/83 H 04/15/18 08:34 Pulse Ox 100 04/15/18 08:34 Orthostatic Blood Pressure [ 144/84 Standing] Orthostatic Blood Pressure [ 133/78 Sitting] Orthostatic Blood Pressure [ 138/81 Supine] - Orders/Labs/Meds Labs: Laboratory Tests 04/15/18 04/15/18 04/15/18 Range/Units 08:47 08:47 08:47 WBC 5.5 (4.5-11.0) K/uL RBC 5.06 (4.30-5.90) M/uL Hgb 16.8 H D (12.0-15.0) g/dL Hct 46.1 (40.0-54.0) % MCV 91 (80-98) fL MCH 33 H (27-31) pg MCHC 36 (32-36) % Plt Count 207 (150-400) K/uL Neut % (Auto) 56 (36-66) % Lymph % (Auto) 29 (24-44) % [place] % (Auto) 11 H (2-6) % Eos % (Auto) 3 (2-4) % Baso % (Auto) 1 (0-1) % Sodium 138 L (140-148) mmol/L Potassium 4.1 (3.6-5.2) mmol/L Chloride 101 (100-108) mmol/L Carbon Dioxide 27 (21-32) mmol/L Anion Gap 14.1 H (5.0-14.0) mmol/L BUN 16 D (7-18) mg/dL Creatinine 1.2 (0.8-1.3) mg/dL Est Cr Clr Drug Dosing 59.99 mL/min Estimated GFR (MDRD) > 60 (>60) Glucose 115 H (74-106) mg/dL Calcium 8.5 (8.5-10.1) mg/dL Total Bilirubin 1.3 H (0.2-1.0) mg/dL AST 28 (15-37) U/L ALT 34 (12-78) U/L Alkaline Phosphatase 81 (46-116) U/L Troponin I < 0.017 (0.000-0.056) ng/mL Total Protein 7.1 (6.4-8.2) g/dL Albumin 3.6 (3.4-5.0) g/dL Globulin 3.5 (2.3-3.5) g/dL Albumin/Globulin Ratio 1.0 L (1.2-2.2) Urine Color Urine Appearance Urine pH (4.5-8.0) Ur Specific [place] (1.008-1.030) Urine Protein (NEGATIVE) mg/dL Urine Glucose (UA) (NEGATIVE) mg/dL Urine Ketones (NEGATIVE) mg/dL Urine Occult Blood (NEGATIVE) Urine Nitrite (NEGAITVE) Urine Bilirubin (NEGATIVE) Urine Urobilinogen (NORMAL) mg/dL Ur Leukocyte Esterase (NEGATIVE) Urine RBC (0-5) Urine WBC (0-5) Ur Epithelial Cells Amorphous Sediment Urine Bacteria Urine Mucus 04/15/18 Range/Units 10:12 WBC (4.5-11.0) K/uL RBC (4.30-5.90) M/uL Hgb (12.0-15.0) g/dL Hct (40.0-54.0) % MCV (80-98) fL MCH (27-31) pg MCHC (32-36) % Plt Count (150-400) K/uL Neut % (Auto) (36-66) % Lymph % (Auto) (24-44) % [place] % (Auto) (2-6) % Eos % (Auto) (2-4) % Baso % (Auto) (0-1) % Sodium (140-148) mmol/L Potassium (3.6-5.2) mmol/L Chloride (100-108) mmol/L Carbon Dioxide (21-32) mmol/L Anion Gap (5.0-14.0) mmol/L BUN (7-18) mg/dL Creatinine (0.8-1.3) mg/dL Est Cr Clr Drug Dosing mL/min Estimated GFR (MDRD) (>60) Glucose (74-106) mg/dL Calcium (8.5-10.1) mg/dL Total Bilirubin (0.2-1.0) mg/dL AST (15-37) U/L ALT (12-78) U/L Alkaline Phosphatase (46-116) U/L Troponin I (0.000-0.056) ng/mL Total Protein (6.4-8.2) g/dL Albumin (3.4-5.0) g/dL Globulin (2.3-3.5) g/dL Albumin/Globulin Ratio (1.2-2.2) Urine Color Yellow Urine Appearance Clear Urine pH 7.0 (4.5-8.0) Ur Specific [place] 1.010 (1.008-1.030) Urine Protein Negative (NEGATIVE) mg/dL Urine Glucose (UA) Normal (NEGATIVE) mg/dL Urine Ketones Negative (NEGATIVE) mg/dL Urine Occult Blood Negative (NEGATIVE) Urine Nitrite Negative (NEGAITVE) Urine Bilirubin Negative (NEGATIVE) Urine Urobilinogen Normal (NORMAL) mg/dL Ur Leukocyte Esterase Negative (NEGATIVE) Urine RBC Not seen (0-5) Urine WBC Not seen (0-5) Ur Epithelial Cells Not seen Amorphous Sediment Not seen Urine Bacteria Not seen Urine Mucus Not seen Meds: Medications Discontinued Medications Generic Name Dose Route Start Last Admin Trade Name Freq PRN Reason Stop Dose Admin Sodium Chloride 1,000 mls @ 999 mls/hr 04/15/18 09:00 04/15/18 10:04 Normal Saline IV Infused ASDIRECTED BJ Infusion Sodium Chloride 1,000 mls @ 999 mls/hr 04/15/18 09:30 04/15/18 10:14 Normal Saline IV 999 mls/hr ASDIRECTED BJ Administration Ondansetron HCl 4 mg 04/15/18 09:19 04/15/18 09:23 Zofran IVPUSH 04/15/18 09:20 4 mg ONETIME ONE Administration - Re-Assessments/Exams Free Text/Narrative Re-Assessment/Exam: 04/15/18 11:11 pt had a normal trop/His ekg did not show changes he was a little slower than usual. 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 His other labs look good. His orthostatics were good. He is feeling much better Departure - Departure Time of Disposition: 11:14 Disposition: Home, Self-Care 01 Condition: Fair Clinical Impression: Dehydration, Heat exhaustion due to water depletion - Discharge Information Instructions: Heat Exhaustion Information, Dehydration, Adult, [id number] Referrals: Raffy Erickson MD [Primary Care Provider] - Forms: ED Department Discharge Care Plan Goals: push fluids, check pulse to see what the rate is running, low activity rtc if further symptoms.
[2018-04-15] MEDS: Sodium Chloride 0.9% 1,000 ML IV SCH ×2 (09:03→10:14)
[2018-04-15] MEDS ORDERED: Ondansetron 4 MG/2 ML SDV IVPUSH ONE (09:19)
[2018-04-15] MEDS ORDERED: Sodium Chloride 0.9% 1,000 ML IV SCH (09:30)
== END 2018-04-15 11:27 | disposition home or self-care (01) ==
LOC: JP.ED 08:18
DX: T67.3XXA Heat exhaustion, anhydrotic, initial encounter (principal); E86.0 Dehydration
CPT/HCPCS: 36415; 80053; 81001; 84484; 85025; 93005; 96361; 96374; 99284; J2405; J7030

== ENCOUNTER 2019-04-24 19:49 | Emergency (ER) | payer BC, MEDICARE, OTHER ==
[2019-04-24 20:38] VITALS: BP 152/92
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
[2019-04-24] MEDS ORDERED: Cyclobenzaprine 10 MG Tab PO ONE (23:13)
[2019-04-24] MEDS ORDERED: Ibuprofen 800 MG Tab PO ONE (23:13)
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
--- NOTE | 2019-04-24 23:38 | CRLCR ---
Lateral cervical spine INDICATION: Trauma. IMPRESSION: No visualized fracture. Alignments anatomic. No additional osseous lesion. FINDINGS: Cross-table lateral cervical spine. C7-T1 is visible. No fractures or listhesis. Prevertebral soft tissues are normal. Multilevel disk degenerative narrowing. Dictated by Giovany Moon MD @ Apr 24 2019 11:36PM Signed by Dr. Giovany Moon @ Apr 24 2019 11:38PM
== END 2019-04-24 23:46 | disposition home or self-care (01) ==
LOC: JP.ED 19:49
DX: S39.011A Strain of muscle, fascia and tendon of abdomen, initial encounter (principal); S16.1XXA Strain of muscle, fascia and tendon at neck level, initial encounter; I10 Essential (primary) hypertension; E78.00 Pure hypercholesterolemia, unspecified; Z79.899 Other long term (current) drug therapy; V49.9XXA Car occupant (driver) (passenger) injured in unspecified traffic accident, initial encounter
CPT/HCPCS: 71046; 72020; 72040; 72100; 72170; 81001; 99283-25

== ENCOUNTER 2022-03-10 20:07 | Emergency (ER) | payer MEDICARE, BC ==
[2022-03-10 22:05] LABS: CORONAVIRUS COVID-19 NAA NEGATIVE (NEGATIVE)
[2022-03-10] MEDS ORDERED: Cetirizine 10 MG Tab PO ONE (22:40)
[2022-03-10 22:54] VITALS: BP 130/60; PULSE 66
== END 2022-03-10 22:59 | disposition home or self-care (01) ==
LOC: JP.ED 20:07
DX: J30.1 Allergic rhinitis due to pollen (principal); E78.00 Pure hypercholesterolemia, unspecified; I10 Essential (primary) hypertension; K21.9 Gastro-esophageal reflux disease without esophagitis; Z79.899 Other long term (current) drug therapy; Z20.822 Contact with and (suspected) exposure to COVID-19
CPT/HCPCS: 0241U; 36415; 71046; 71046-26; 80053; 85025; 86140; 99282; 99283-25